=== PATIENT | male | born 1990 | race Caucasian/White ===

== ENCOUNTER 2019-05-27 08:29 | Outpatient (CLI) | payer OTHER, SELFPAY ==
--- NOTE | ~2019-05-27 | XR_ITS ---
EXAMINATION: XR shoulder LT min 2V DATE: 05/27/2019 09:25 INDICATION: Left biceps pain. TECHNIQUE: 4 views of left shoulder were obtained. COMPARISON: Chest 2 views 01/07/2019 FINDINGS: Bone alignment is normal. No fracture. Joint spaces are well maintained. IMPRESSION: 1. Normal left shoulder. Reviewed, dictated and finalized at location A. F DEVELOPMENT MANAGER IMPRESSION: 1. Normal left shoulder.
--- NOTE | ~2019-05-27 | US_ITS ---
EXAMINATION: US art doppler w press UE BI DATE: 05/27/2019 09:22 INDICATION: Left upper limb pain TECHNIQUE: Segmental pressures and plethysmographic and Doppler waveforms of the upper extremity terrie oral were obtained. COMPARISON: None. FINDINGS: Right and left brachial artery pressures of 118 mm Hg and 114 mm Hg, respectively, are concordant (no rmal difference <= 30 mmHg). The right finger:brachial systolic pressure ratio is 1.34 (normal > 0.8) . Segmental pressure gradients are normal. Arterial waveforms are triphasic at the right subclavian a nd brachial arteries and biphasic at the remaining arteries with brisk systolic upstrokes throughout (normal upstroke < 0.2 s). The left finger:brachial systolic pressure ratio is 1.38. Segmental pressure gradients are normal. Ar terial waveforms are triphasic at the left subclavian, axillary and brachial arteries and biphasic at the left brachial and ulnar arteries with brisk systolic upstrokes throughout. IMPRESSION: No significant arterial occlusive disease to either upper limb with normal bilateral finger brachial indices. Reviewed, dictated and finalized at location A. EMEAT MAKER IMPRESSION: No significant arterial occlusive disease to either upper limb with normal bila teral finger brachial indices.
--- NOTE | ~2019-05-27 | XR_ITS ---
EXAMINATION: XR humerus LT DATE: 05/27/2019 09:25 INDICATION: Left biceps pain. TECHNIQUE: 2 views of left humerus were obtained. COMPARISON: None. FINDINGS: Bone alignment is normal. No fracture. Joint spaces are well maintained. IMPRESSION: 1. Normal left humerus. Reviewed, dictated and finalized at location A. FACTURING WORKER IMPRESSION: 1. Normal left humerus.
== END 2019-05-27 08:30 | disposition home or self-care (01) ==
PROVIDERS: PCP Emergency Medicine; Visit Provider Emergency Medicine
DX: M79.18 Myalgia, other site (principal)
CPT/HCPCS: 73030; 73060; 93923

== ENCOUNTER 2020-01-12 20:37 | Emergency (ER) | payer SELFPAY ==
[2020-01-12 20:41] VITALS: BP 162/95; PULSE 98; RESP 17; TEMP 36.6; O2SAT 100
[2020-01-12 23:13] VITALS: BP 163/94; PULSE 85; RESP 20; O2SAT 96
--- NOTE | 2020-01-12 23:14 | ED.ANXIETY ---
HPI - Anxiety General Chief Complaint: Anxiety Stated Complaint: blood pressure through the roof, anxious Time Seen by Provider: 01/12/20 23:08 Source: RN notes reviewed History of Present Illness HPI narrative: Patient presents emergency department from home for hypertension. Patient states he was sitting at home when he began to feel anxious. States he felt his blood pressure spiked at that time as well and states he had tingling in his bilateral hands with some mild nausea. He states he is feeling better at this time. States he had a previous history of hypertension and had been on antihypertensive medication but was taken off of it 2 years ago when he stopped smoking. He denies any fevers or chills chest pain shortness of breath abdominal pain headache vision changes or any other symptoms at this time. Patient states he does have history of anxiety and had been on Xanax but is currently out of his prescription f Related Data Allergies Allergy/AdvReac Type Severity Reaction Status Date / Time No Known Allergies Allergy Unverified 01/07/19 21:54 Review of Systems Review of Systems: Narrative: Gen.: Denies fevers or chills Eyes: Denies eye pain or visual change ENT: Denies congestion Respiratory: Denies shortness of breath or cough CV: Denies chest pain or palpitations GI: Denies abdominal pain nausea, emesis or diarrhea denies burning, urgency, frequency or hematuria Musculoskeletal: Denies back pain or muscle pain Neuro: Denies numbness, tingling, weakness or focal weakness Skin: Denies rash Psych: Reports anxiety Except as documented, all other systems reviewed and negative PMFSH Past Medical History Medical History (Updated 01/13/20 @ 01:39 by Dieter Mckeon DO) Anxiety Social History Social History (Updated 01/12/20 @ 23:16 by Dieter Mckeon DO) Smoking status: Former smoker Exam Narrative: Exam Narrative: APPEARANCE: No acute distress, nontoxic, resting in bed EYES: EOMI, Maribel HEENT: Normocephalic, atraumatic, OMM RESPIRATORY: No respiratory distress Clear to auscultation bilaterally with no rhonchi wheezing or rales. CARDIOVASCULAR: Regular rate and rhythm without murmurs rubs or gallops. ABDOMINAL: Soft, nontender, nondistended, no rebound or guarding MUSCULOSKELETAl: Moves all extremities. No clubbing, cyanosis or edema. NEURO: Awake and alert x 3. Following commands, speech normal, no focal deficits SKIN:: Warm, dry. No rashes lesions or abrasions PSYCHIATRIC: Normal affect/mood, Course Course Emergency Course: Patient given states he has some feelings of anxiety Ativan was given with resolution of symptoms. Discussed with patient results of workup and diagnosis. Discussed need for follow-up with primary care, proper use of medication, and reasons to return to the emergency department. Patient understands and agrees to current treatment plan. Discussed with patient need follow-up with PCP Dr. Pedraza as he has been taken off his hypertensive medication in the past and may require them again Vital Signs Vital signs: Vital Signs Temperature 97.9 F 01/12/20 20:41 Pulse Rate 98 01/12/20 20:41 Respiratory Rate 17 01/12/20 20:41 Blood Pressure 162/95 H 01/12/20 20:41 Pulse Oximetry 100 01/12/20 20:41 Temperature 97.9 F 01/12/20 20:41 Pulse Rate 104 H 01/12/20 23:57 Respiratory Rate 18 01/12/20 23:57 Blood Pressure 160/94 H 01/12/20 23:57 Pulse Oximetry 98 01/12/20 23:57 MDM - Anxiety Lab Data Result diagrams: 01/12/20 23:40 01/12/20 23:40 Labs: Lab Results 01/12/20 01/12/20 01/13/20 Range/Units 23:40 23:40 00:08 WBC 9.6 (4.5-10.0) K/mm3 RBC 5.25 (4.6-6.20) M/mm3 Hgb 15.4 (14.0-18.0) g/dL Hct 45.1 (42.0-52.0) % MCV 85.9 (80-100) fl MCH 29.3 (26-34) pg MCHC 34.1 (32-36) g/dl RDW 11.6 (11.5-14.5) % Plt Count 232 (150-375) k/mm3 MPV 10.8 H (7.4-10.4) fl Immature Gr
[2020-01-12 23:45] LABS: Basophils Absolute Auto 0.1 K/mm3 (0.0-0.1); Basophils Percent Auto 0.6 % (0.2-1.2); Eosinophils Absolute Auto 0.4 K/mm3 (0-0.3); Eosinophils Percent Auto 4.1 % (0-4.4); Hematocrit 45.1 % (42.0-52.0); Hemoglobin 15.4 g/dL (14.0-18.0); Immature Granulocyte Absolute 0.03 K/mm3 (0.00-0.031); Immature Granulocyte Percent A 0.3 % (0-0.5); Lymphocytes Absolute Auto 2.31 K/mm3 (0.9-3.2); Lymphocytes Percent Auto 24.1 % (18.3-44.2); Mean Corpuscular HGB Conc 34.1 g/dl (32-36); Mean Corpuscular Hemoglobin 29.3 pg (26-34); Mean Corpuscular Volume 85.9 fl (80-100); Mean Platelet Volume 10.8 fl (7.4-10.4); Monocytes Absolute Auto 0.7 K/mm3 (0.1-0.6); Monocytes Percent Auto 7.3 % (2.6-8.5); Neutrophils Absolute Auto 6.1 K/mm3 (1.3-6.7); Neutrophils Percent Auto 63.6 % (45.5-73.1); Platelet Count Result 232 k/mm3 (150-375); Red Blood Count 5.25 M/mm3 (4.6-6.20); Red Cell Distribution Width 11.6 % (11.5-14.5); White Blood Count 9.6 K/mm3 (4.5-10.0)
[2020-01-12 23:57] VITALS: BP 160/94; PULSE 104; RESP 18; O2SAT 98
[2020-01-12 23:57] LABS: Alanine Aminotransferase 38 U/L (4-50); Albumin Level 4.3 g/dL (3.5-5.1); Alkaline Phosphatase 90 U/L (38-126); Anion Gap 8 mmol/L (8-16); Aspartate Amino Transferase 28 U/L (17-59); Bilirubin,Total 0.5 mg/dL (0.2-1.3); Blood Urea Nitrogen 11 mg/dL (9-20); Calcium 9.6 mg/dL (8.4-10.2); Carbon Dioxide 29 mmol/L (22-30); Chloride 100 mmol/L (98-107); Estimated Glomerular Filt Rate > 60; Glucose 99 mg/dL (75-110); Potassium 4.3 mmol/L (3.4-5.0); Sodium 137 mmol/L (137-145)
[2020-01-13 00:22] LABS: Add Urine Microscopic? NO; Appearance Urine Clear (Clear); Bilirubin Urine Negative (Negative); Blood Urine Negative (Negative); Color Urine Straw (Yellow); Glucose Urine UA Negative (Negative); Ketones Urine Negative (Negative); Leukocyte Esterase Ur Negative LEU/UL (Negative); Nitrate Urine Negative (Negative); Protein Urine Negative (Negative); Specific Grav Ur 1.012 (1.001-1.035); Urobilinogen Urine Negative mg/dL (<2.0)
[2020-01-13] MEDS: LORazepam (*CRX) 0.5 MG TABLET PO (00:37)
[2020-01-13 02:39] VITALS: BP 139/94; PULSE 85; RESP 20; O2SAT 98
== END 2020-01-13 03:22 | disposition home or self-care (01) ==
PROVIDERS: Emergency Provider Emergency Medicine; Referring Provider Family Medicine
DX: F41.9 Anxiety disorder, unspecified (principal); I10 Essential (primary) hypertension; Z87.891 Personal history of nicotine dependence
CPT/HCPCS: 36415; 80053; 81003; 85025; 99283; A9270

== ENCOUNTER 2020-01-19 21:00 | Emergency (ER) | payer SELFPAY ==
[2020-01-19 21:13] VITALS: BP 156/68; PULSE 81; RESP 98; TEMP 36.8; O2SAT 100
--- NOTE | 2020-01-19 22:29 | ED.WOUNDLAC ---
HPI - Wound/Laceration General Chief Complaint: Wound/Laceration Stated Complaint: left finger laceration Time Seen by Provider: 01/19/20 22:00 History of Present Illness HPI narrative: Patient is a 29-year-old male who presents ER with a thumb laceration. Left thumb. He was trying to make salad and cut his fingertip with a knife. No numbness or tingling. He is cleanse the wound. No functional deficit. Unknown last tetanus. Related Data Allergies Allergy/AdvReac Type Severity Reaction Status Date / Time No Known Allergies Allergy Verified 01/19/20 21:39 Review of Systems Constitutional: Constitutional: Denies fever(s) and Denies weakness Musculoskeletal: Musculoskeletal: Denies arthralgias and Denies joint swelling Integumentary/Breasts: Comments: Laceration to thumb left Neurologic: Denies focal weakness and Denies numbness PMFSH Past Medical History Medical History (Updated 01/19/20 @ 23:40 by Manuel Valencia MD) Anxiety Surgical History Surgical History (Updated 01/19/20 @ 22:30 by Manuel Valencia MD) No history of previous surgery Social History Social History (Updated 01/12/20 @ 23:16 by Dieter Mckeon DO) Smoking status: Former smoker Exam Narrative: Exam Narrative: GENERAL: Well-appearing, well-nourished, and in no acute distress. HEAD: Normocephalic, atraumatic. EXTREMITIES: Focused exam left hand reveals laceration over the palmar aspect of the thumb is about 2 cm extending into the ulnar aspect of the thumbnail. Sharp sensation intact. Capillary refill noted. SKIN: Warm, dry, laceration as noted above. NEURO: No focal deficits. Alert and oriented x3. PSYCH: Normal mood and affect. Course Vital Signs Vital signs: Vital Signs Temperature 98.2 F 01/19/20 21:13 Pulse Rate 81 01/19/20 21:13 Respiratory Rate 98 H 01/19/20 21:13 Blood Pressure 156/68 H 01/19/20 21:13 Pulse Oximetry 100 01/19/20 21:13 Temperature 98.2 F 01/19/20 21:13 Pulse Rate 81 01/19/20 21:13 Respiratory Rate 98 H 01/19/20 21:13 Blood Pressure 156/68 H 01/19/20 21:13 Pulse Oximetry 100 10/05/20 21:13 Procedures Laceration Laceration 1: Date: 01/19/20 Time: 23:38 Site: other (thumb) Side (If applicable): left Size (cm): 2 Description: linear and flap Depth: simple, single layer Local Anesthetic: lidocaine 1% and with epi Amount of anesthesia used (mL): 2 Pre-repair: irrigated ====== Skin Level ====== Skin layer closed with: nylon Size (cm): 4-0 Number of sutures: 2 Technique: simple, interrupted ====== Subcutaneous Layer ====== ====== Muscle Layer ====== ====== Tendon Layer ====== Discharge Plan Discharge Clinical Impression: Laceration Patient Disposition: Home, Self-Care Condition: Stable Instructions: Laceration (ED) Additional Instructions: Return to the ER if your thumb is red and hot and swollen, it is draining pus from the wound, or you have additional concerns. Remove your sutures in 10 to 14 days. Prescriptions: No Action alprazolam [Xanax] 0.25 mg tablet 0.25 mg PO TID PRN (Reason: anxiety) Qty: 4 RF: 0 Follow-up/Referrals: Francesco Pedraza MD [Primary Care Provider] - 1 Week
[2020-01-19] MEDS: TETANUS,DIPHTHERIA,AC PERTUSSIS ADULT (0.5 ML) BOOSTRIX IM (22:33)
[2020-01-19 23:45] VITALS: BP 141/82; PULSE 88; RESP 19; O2SAT 99
== END 2020-01-19 23:45 | disposition home or self-care (01) ==
PROVIDERS: Emergency Provider Emergency Medicine; PCP Emergency Medicine
DX: S61.012A Laceration without foreign body of left thumb without damage to nail, initial encounter (principal); W26.0XXA Contact with knife, initial encounter; Y93.G1 Activity, food preparation and clean up; Z23 Encounter for immunization
CPT/HCPCS: 12001; 90471; 90715; 99282

== ENCOUNTER 2020-01-28 22:48 | Emergency (ER) | payer OTHER, MEDICAID, SELFPAY ==
--- NOTE | ~2020-01-28 | XR_ITS ---
EXAMINATION: XR ankle LT min 3V EXAM DATE: 01/28/2020 23:37 INDICATION: Initial encounter following injury, with pain of the left ankle. TECHNIQUE: Left ankle frontal, lateral and oblique projections obtained and reviewed. There is no pr ior study for comparison. FINDINGS: The left ankle mortise appears intact. There is acute closed posttraumatic fracture thro ugh the posterior malleolus identified on the lateral projection. No displacement. This finding has b een indicated, marked on the examination for review, clinical correlation. There is an ankle joint hemarthrosis. There is soft tissue swelling over the lateral malleolus. No other fractures are identi fied. IMPRESSION: Acute nondisplaced left posterior malleolar fracture. Reviewed, dictated and finalized at location G.
[2020-01-28 22:53] VITALS: BP 161/90; PULSE 97; RESP 16; TEMP 36.6; O2SAT 98
--- NOTE | 2020-01-28 23:02 | ED.LOWEXIN ---
HPI - Extremity Injury (Lower) General Chief Complaint: Extremity Injury, Lower Stated Complaint: ankle pain/fall Time Seen by Provider: 01/28/20 22:57 History of Present Illness HPI Narrative: Slipped and fell down a few steps. Twisted his left ankle when he landed. Noted several pops. Pain and swelling in the ankle and extending 1[address] up the lower leg. Related Data Home Medications Medication Instructions Recorded Confirmed lisinopril 5 mg PO DAILY 01/28/20 omeprazole 40 mg PO DAILY 01/28/20 Allergies Allergy/AdvReac Type Severity Reaction Status Date / Time No Known Allergies Allergy Verified 01/28/20 23:11 Review of Systems Review of Systems: All systems reviewed & are unremarkable except as noted in HPI and below PMFSH Past Medical History Medical History Anxiety Surgical History Surgical History No history of previous surgery Social History Social History Smoking status: Former smoker Gender identity (if verbalized by the patient): Male Exam Const: General: no acute distress and alert Orientation/consciousness: patient oriented x3 HENMT: Head: normal to inspection Cardio: Other: 2+ left DP Skin: General skin exam: normal color Wounds: no wounds Neuro: General: patient oriented x3 and moves all extremities Speech: normal speech Extrem: Other: Swelling and tenderness over left lateral malleolus. Plantar flexion of toes with calf squeeze. Course Vital Signs Vital signs: Vital Signs Temperature 36.6 C 01/28/20 22:53 Pulse Rate 97 01/28/20 22:53 Respiratory Rate 16 01/28/20 22:53 Blood Pressure 161/90 H 01/28/20 22:53 Pulse Oximetry 98 01/28/20 22:53 Temperature 36.6 C 01/28/20 22:53 Pulse Rate 97 01/28/20 22:53 Respiratory Rate 16 01/28/20 22:53 Blood Pressure 161/90 H 01/28/20 22:53 Pulse Oximetry 98 01/28/20 22:53 Procedures Orthopedic Splinting/Casting Injury #1: Side: left Splint: customized in ED OCL: posterior Pre-Procedure Neuro Vascular Exam: normal Post-Procedure Neuro Vascular Exam: normal Other Orthopedic Equipment: crutches MDM - Extremity Injury (Lower) Differential Diagnosis Differential diagnosis: Likely ankle sprain and strain and ankle fracture Imaging Data Radiologist's impression: ITS Impressions Ankle X-Ray 01/28/20 23:39 IMPRESSION: Acute nondisplaced left posterior malleolar fracture. Discharge Plan Discharge Clinical Impression: Ankle fracture, left Patient Disposition: Home, Self-Care Condition: Stable Instructions: Ankle Fracture (ED) Prescriptions: No Action alprazolam [Xanax] 0.25 mg tablet 0.25 mg PO TID PRN (Reason: anxiety) Qty: 4 RF: 0 omeprazole 40 mg Capsule,Delayed Release(Dr/Ec) 40 mg PO DAILY RF: 0 lisinopril 5 mg tablet 5 mg PO DAILY RF: 0 Follow-up/Referrals: Francesco Pedraza MD [Primary Care Provider] - Beau King MD [Physician] - 1 Week
== END 2020-01-29 00:20 | disposition home or self-care (01) ==
PROVIDERS: Emergency Provider Emergency Medicine; PCP Emergency Medicine
DX: S82.892A Other fracture of left lower leg, initial encounter for closed fracture (principal); W10.9XXA Fall (on) (from) unspecified stairs and steps, initial encounter
CPT/HCPCS: 29515; 73610; 99284

== ENCOUNTER → 2020-02-26 12:25 | Outpatient (CLI) | payer MEDICAID, SELFPAY ==
--- NOTE | ~2020-02-26 | XR_ITS ---
EXAMINATION: XR abdomen/kub 1V EXAM DATE: 02/26/2020 12:49 INDICATION: Left flank pain . TECHNIQUE: Frontal projection(s) of the abdomen for interpretation. There is no prior study for tash woods. FINDINGS: There are 2 pill-like densities within colon. Calcifications in the pelvis are believed to be phleboliths. Expected amount of colonic stool. No small bowel dilation. Bones are unremarkable. IMPRESSION: Unremarkable XR abdomen/kub 1V exam. Reviewed, dictated and finalized at location A. RE CUTTER
== END ==
PROVIDERS: PCP Emergency Medicine; Visit Provider Emergency Medicine
DX: R10.9 Unspecified abdominal pain (principal)
CPT/HCPCS: 74018

== ENCOUNTER 2020-04-13 17:22 | Emergency (ER) | payer OTHER, MEDICAID, SELFPAY ==
[2020-04-13 17:25] VITALS: BP 147/75; PULSE 85; RESP 16; TEMP 36.8; O2SAT 99
--- NOTE | 2020-04-13 18:10 | ED.GENADULT ---
HPI - General Adult General Chief complaint: Dizziness Stated complaint: Dizziness Time Seen by Provider: 04/13/20 18:04 Source: patient and RN notes reviewed Mode of arrival: ambulatory Limitations: no limitations History of Present Illness HPI narrative: 29-year-old male presents with complaints of dizziness and lightheadedness that has been going on for the past 2 days. Wilbur reports symptoms increased today with LT ear muffled, dizziness, and nausea. No treatment. Wilbur reports upper respiratory infection symptoms a week ago with residual of sinus pressure and post nasal drip. Exacerbating factors consist of changing position too fast turning head from side to side too fast. Relieving factors is sitting still. Denies ear pain, ear itching, ear trauma, trauma to head, syncopal episodes, altered vision, altered speech, confusion, or seizure activity. Denies headache, numbness or tingling in extremities. Denies chest pain or dyspnea. Denies fever or chills. Tolerating p.o. intake well. Remains active. The patient reports he have not been diagnosed with COVID-19. The patient reports he is not waiting for the results of a COVID-19 lab test. The patient reports he do not have chills, weakness, or fatigue. The patient reports he do not have a new or worsening cough or shortness of breath. Denies chest pain. The patient reports he do not have any loss of taste, sore throat, vomiting, abdominal pain, and diarrhea. Denies recent traveling. Denies concerns for COVID-19 or exposures been home with limited outdoor exposure except for essential household needs, work, and return home. At this time, patient is not suspected of having COVID-19. Some parts of this dictation were generated by voice recognition software and may contain typographical and/or grammatical inaccuracies. Related Data Home Medications Medication Instructions Recorded Confirmed lisinopril [Zestril] 5 mg PO DAILY 04/13/20 04/13/20 omeprazole [Prilosec] 40 mg PO DAILY 04/13/20 04/13/20 Allergies Allergy/AdvReac Type Severity Reaction Status Date / Time No Known Allergies Allergy Verified 04/13/20 17:40 Review of Systems Review of Systems: Narrative: CONSTITUTIONAL: Denies fever, chills, sweats. EYES: visual changes, redness, discharge. ENT: Complains of rhinorrhea, congestion, muffled LT ear. Denies sore throat, otalgia. CARDIOVASCULAR: Denies chest pain, palpitations, edema. RESPIRATORY: Denies dyspnea, wheezing, cough. GASTROINTESTINAL: Denies abdominal pain, vomiting, diarrhea. Complains of nausea. SKIN: Denies lesions, itching, drainage. MUSCULOSKELETAL: Denies acute back pain, joint pain, or myalgia. NEUROLOGIC: Denies numbness or focal weakness. Complains of dizziness, lightheadedness. PSYCHIATRIC: Denies anxiety or depression. All systems reviewed & are unremarkable except as noted in HPI and below. [facility] Past Medical History Medical History (Updated 04/14/20 @ 00:00 by [facility]) Anxiety History of gastroesophageal reflux (GERD) Hypertension Obesity Surgical History Surgical History No history of previous surgery Family History Family History (Updated 04/13/20 @ 18:19 by JEAN Eaton) Father Hypertension Diabetes mellitus Mother Hypertension Social History Social History (Updated 04/13/20 @ 18:22 by JEAN Eaton) Smoking status: Former smoker Tobacco type: cigarettes Second hand tobacco smoke exposure: Yes Smoking end date: 06/15/15 Alcohol intake: current Substance use: never Additional living arrangements comments: significant other Gender identity (if verbalized by the patient): Male Comments At time of signature, agree with nurse past medical, surgical, social, and family history. There is no relevant family history pertinent to the presenting complaint. Exam Narrative: Exam Narrative: GENERAL: This i
[2020-04-13] MEDS: MECLIZINE HCL 25 MG TABLET PO (18:16)
[2020-04-13] MEDS: ONDANSETRON HCL ODT 4 MG TABLET PO (18:16)
--- NOTE | 2020-04-13 18:18 | ECG_ITS ---
Measurements Intervals Gregory Rate: 75 P: 55 MS: 182 QRS: 44 QRSD: 94 T: 38 QT: 322 QTc: 360 Interpretive Statements SINUS RHYTHM WITH SINUS ARRHYTHMIA MINIMAL Q WAVES- INFERIOR LEADS BASELINE WANDER- V4-V6 BORDERLINE ECG Electronically Signed On 04-14-2020 13:56:37 BREAKFAST BAR ATTENDANT by Crispin Girard D.O.
[2020-04-13 18:20] VITALS: BP 119/73; PULSE 80
[2020-04-13 18:22] VITALS: BP 121/71; PULSE 82
[2020-04-13 18:24] VITALS: BP 110/67; PULSE 96
== END 2020-04-13 18:35 | disposition home or self-care (01) ==
PROVIDERS: Emergency Provider Nurse Practitioner Family; PCP Emergency Medicine
DX: H81.10 Benign paroxysmal vertigo, unspecified ear (principal); Z87.891 Personal history of nicotine dependence; K21.9 Gastro-esophageal reflux disease without esophagitis; I10 Essential (primary) hypertension; E66.9 Obesity, unspecified; Z68.34 Body mass index [BMI] 34.0-34.9, adult
CPT/HCPCS: 93005; 99213; A9270; G0463

== ENCOUNTER 2020-04-14 12:21 | Outpatient (NON) | payer MEDICAID, SELFPAY ==
[2020-04-14 22:08] LABS: SARS-CoV-2 RNA PCR Negative
== END 2020-04-14 12:22 ==
PROVIDERS: PCP Emergency Medicine; Visit Provider Emergency Medicine
DX: Z20.828 Contact with and (suspected) exposure to other viral communicable diseases (principal); R53.83 Other fatigue; M54.2 Cervicalgia
CPT/HCPCS: 87635; C9803; U0003

== ENCOUNTER 2020-05-11 18:38 | Emergency (ER) | payer MEDICAID, SELFPAY ==
[2020-05-11 18:54] VITALS: BP 166/82; PULSE 87; RESP 16; TEMP 36.6; O2SAT 98
[2020-05-11 19:07] LABS: Basophils Percent Auto 0.7 % (0.2-1.2); Eosinophils Absolute Auto 0.2 K/mm3 (0-0.3); Eosinophils Percent Auto 3.9 % (0-4.4); Hematocrit 45.7 % (42.0-52.0); Hemoglobin 15.6 g/dL (14.0-18.0); Immature Granulocyte Absolute 0.02 K/mm3 (0.00-0.031); Immature Granulocyte Percent A 0.3 % (0-0.5); Lymphocytes Absolute Auto 1.53 K/mm3 (0.9-3.2); Lymphocytes Percent Auto 25.7 % (18.3-44.2); Mean Corpuscular HGB Conc 34.1 g/dl (32-36); Mean Corpuscular Hemoglobin 29.3 pg (26-34); Mean Corpuscular Volume 85.7 fl (80-100); Monocytes Absolute Auto 0.5 K/mm3 (0.1-0.6); Monocytes Percent Auto 9.1 % (2.6-8.5); Neutrophils Absolute Auto 3.6 K/mm3 (1.3-6.7); Neutrophils Percent Auto 60.3 % (45.5-73.1); Platelet Count Result 249 k/mm3 (150-375); Red Blood Count 5.33 M/mm3 (4.6-6.20); Red Cell Distribution Width 11.8 % (11.5-14.5)
[2020-05-11 19:20] LABS: Alanine Aminotransferase 40 U/L (4-50); Albumin Level 4.4 g/dL (3.5-5.1); Alkaline Phosphatase 88 U/L (38-126); Anion Gap 9 mmol/L (8-16); Aspartate Amino Transferase 27 U/L (17-59); Bilirubin,Total 0.4 mg/dL (0.2-1.3); Blood Urea Nitrogen 8 mg/dL (9-20); Calcium 9.1 mg/dL (8.4-10.2); Carbon Dioxide 28 mmol/L (22-30); Chloride 100 mmol/L (98-107); Estimated CRCL calculation 181 ml/min; Estimated Glomerular Filt Rate > 60; Glucose 101 mg/dL (75-110); Lipase 47 U/L (23-300); Potassium 4.1 mmol/L (3.4-5.0); Sodium 137 mmol/L (137-145)
[2020-05-11 19:47] VITALS: BP 146/81; BP 161/87; PULSE 80; PULSE 85
[2020-05-11 19:49] VITALS: BP 161/95; PULSE 94
--- NOTE | 2020-05-11 19:54 | ED.NAVMDI ---
HPI - Nausea/Vomiting/Diarrhea General Chief complaint: Nausea/Vomiting/Diarrhea Stated complaint: vomiting after drinking last night Time Seen by Provider: 05/11/20 19:47 Source: patient Mode of arrival: ambulatory Limitations: no limitations History of Present Illness HPI Narrative: 29-year-old male Reports drinking too many to count rum and Cokes yesterday Today he feels bad He has had a headache and upset stomach vomited a couple times earlier today and has had no appetite He has been able to start taking sips of liquids this evening He was worried he might be dehydrated because he had only voided twice today Related Data Home Medications Medication Instructions Recorded Confirmed lisinopril [Zestril] 5 mg PO DAILY 04/13/20 04/13/20 omeprazole [Prilosec] 40 mg PO DAILY 04/13/20 04/13/20 Allergies Allergy/AdvReac Type Severity Reaction Status Date / Time No Known Allergies Allergy Verified 04/13/20 17:40 Review of Systems Constitutional: Constitutional: Reports fatigue and Reports weakness Gastrointestinal: Gastrointestinal: Reports nausea and Reports vomiting Neurologic: Comments: Headache PMFSH Past Medical History Medical History (Updated 05/11/20 @ 19:55 by Adam Gamino MD) Anxiety History of gastroesophageal reflux (GERD) Hypertension Obesity Surgical History Surgical History No history of previous surgery Family History Family History (Updated 04/13/20 @ 18:19 by JEAN Eaton) Father Hypertension Diabetes mellitus Mother Hypertension Social History Social History (Updated 04/13/20 @ 18:22 by JEAN Eaton) Smoking status: Former smoker Tobacco type: cigarettes Second hand tobacco smoke exposure: Yes Smoking end date: 06/15/15 Alcohol intake: current Substance use: never Additional living arrangements comments: significant other Gender identity (if verbalized by the patient): Male Exam Const: General: no acute distress, well developed, alert and awake Nutritional Appearance: well nourished Orientation/consciousness: patient oriented x3 (alert) Limitations: no limitations HENMT: Head: normal to inspection, normocephalic and atraumatic Ears: external ears normal General nose exam: No nasal discharge present and no epistaxis Face and sinus: face symmetric Eyes: Conjunctivae: conjunctivae normal Sclera: sclerae normal EOM: EOMs intact bilaterally Neck: Neck: normal visual inspection, supple and no JVD Other: Supple Chest: Chest palpation & inspection: deferred Resp: Effort & Inspection: normal respiratory effort Auscultation: clear to auscultation bilaterally, no rales, no rhonchi, no wheezes and other (BS =) Cardio: Rate: regular rate Rhythm: regular rhythm Heart sounds: no gallops and no murmurs GI: Inspection: normal to inspection GI Palp: Yes Soft to palpation, No Tenderness to palpation present (GI) and No Guarding due to palpation present (GI) Back/Spine/Pelvis: Thoracic/Lumbar Spine: thoracic and lumbar spine normal to inspection Skin: General skin exam: normal color and no rashes or lesions noted Neuro: General: patient oriented x3 (alert), moves all extremities and no focal motor deficits Cranial nerves: Yes facial symmetry Speech: normal speech Other: Negative Romberg Extrem: General: full ROM Psych: Affect: normal affect Course Course Emergency Course: Orthostatics negative Vital Signs Vital signs: Vital Signs Temperature 36.6 C 05/11/20 18:54 Pulse Rate 87 05/11/20 18:54 Respiratory Rate 16 05/11/20 18:54 Blood Pressure 166/82 H 05/11/20 18:54 Pulse Oximetry 98 05/11/20 18:54 Temperature 36.6 C 05/11/20 18:54 Pulse Rate 94 05/11/20 19:49 Respiratory Rate 16 05/11/20 18:54 Blood Pressure 161/95 H 05/11/20 19:49 Pulse Oximetry 98 05/11/20 18:54 MDM - Nausea/Vomiting/Diarrhea Lab Data
[2020-05-11] MEDS: ONDANSETRON HCL ODT 4 MG TABLET PO (20:05)
== END 2020-05-11 20:11 | disposition home or self-care (01) ==
PROVIDERS: Emergency Medicine; Emergency Provider Emergency Medicine; PCP Emergency Medicine
DX: F10.129 Alcohol abuse with intoxication, unspecified (principal); K21.9 Gastro-esophageal reflux disease without esophagitis; I10 Essential (primary) hypertension; E66.9 Obesity, unspecified; Z68.37 Body mass index [BMI] 37.0-37.9, adult; Z87.891 Personal history of nicotine dependence
CPT/HCPCS: 36415; 80053; 83690; 85025; 99283; A9270

== ENCOUNTER 2020-05-25 15:34 | Outpatient (CLI) | payer MEDICAID, SELFPAY ==
--- NOTE | ~2020-05-25 | MR_ITS ---
EXAMINATION: MR brain/brain stem wo/w con DATE: 05/25/2020 16:38 INDICATION: Pineal gland cyst. TECHNIQUE: Magnetic resonance imaging (MRI) of the brain and brainstem was performed without and with 20 mL MultiHance intravenous contrast. Sequences included sagittal and axial T1-weighted FSE, axial diffusion-weighted FS EPI, axial T2*-weighted GRE, axial T2-weighted FLAIR Propeller, and axial T2-we ighted Propeller. Postcontrast sequences included axial, sagittal, and coronal T1-weighted FSE. Appar ent diffusion coefficient (ADC) maps were created. COMPARISON: Brain MRI 01/28/2016 FINDINGS: There is no intracranial hemorrhage or acute ischemic infarct. There is a 1.8 x 1.5 x 1.6 c m pineal cyst. The orbits are normal. There is complete opacification of right maxillary sinus, which is slightly smaller than the left. There is mild mucosal thickening in the ethmoid sinuses. The mast oid air cells are normal. IMPRESSION: 1. 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 2. 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 This finding is at risk of progression to silent sinus syndrome. Reviewed, dictated and finalized at location A. T PACKER IMPRESSION: 1. 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 2. Chronic complete opacification of right maxillary sinus, which is slightly s maller than the left. This finding is at risk of progression to silent sinus sy ndrome.
[2020-05-25 16:08] LABS: Estimated Glomerular Filt Rate > 60
== END 2020-05-25 15:35 | disposition home or self-care (01) ==
PROVIDERS: PCP Emergency Medicine; Visit Provider Internal Medicine Hematology & Oncology
DX: E34.8 Other specified endocrine disorders (principal); J34.9 Unspecified disorder of nose and nasal sinuses
CPT/HCPCS: 70553; A9577

== ENCOUNTER 2020-11-15 09:29 | Emergency (ER) | payer BC, SELFPAY ==
--- NOTE | ~2020-11-15 | XR_ITS ---
EXAMINATION: XR chest 2V DATE: 11/15/2020 10:18 INDICATION: Chest tightness and left shoulder pain TECHNIQUE: PA and lateral views of the chest are obtained. COMPARISON: 01/07/2019 FINDINGS: The lungs are free of acute opacities. There is no pleural effusion or pneumothorax. The ca rdiomediastinal silhouette is normal. The visualized bones and soft tissues are unremarkable. IMPRESSION: 1. No acute cardiopulmonary abnormality. Reviewed, dictated and finalized at location A.
[2020-11-15 09:34] VITALS: BP 155/99; PULSE 105; RESP 12; TEMP 36.6; O2SAT 99
[2020-11-15 09:39] VITALS: PULSE 94
--- NOTE | 2020-11-15 09:39 | ED.GENADULT ---
HPI - General Adult General Chief complaint: Unspecified Stated complaint: r/o stroke or heart attack, sent by PCP Time Seen by Provider: 11/15/20 09:37 History of Present Illness HPI narrative: Patient is a 30 year old male sent by PCP for further evaluation. Patient reports left sided neck pain and shoulder pain with tightness . He reports initially had tingling to left hand which has since resolved. Patient reports a history of HTN and was taking 5mg of Lisinopril daily but patient has not had in approximately 1 month. Patient reports seeing PCP today for medication refill and was sent for further evaluation. Patient denies shortness of breath, dizziness, numbness, tingling or chest pain at this time. He denies significant medical history. He denies exposure to Covid and is not vaccinated for Covid. MD complaint: Shoulder discomfort Related Data Home Medications Medication Instructions Recorded Confirmed lisinopril [Zestril] 5 mg PO DAILY 04/13/20 04/13/20 omeprazole [Prilosec] 40 mg PO DAILY 04/13/20 04/13/20 Allergies Allergy/AdvReac Type Severity Reaction Status Date / Time No Known Allergies Allergy Verified 11/15/20 09:38 Review of Systems Review of Systems: CONSTITUTIONAL: Denies fever, chills, or sweats. EYES: Denies visual changes, redness, or discharge. ENT: Denies rhinorrhea, congestion, sore throat, or otalgia. CARDIOVASCULAR: Denies chest pain, palpitations, or edema. RESPIRATORY: Denies cough or dyspnea. GASTROINTESTINAL: Denies abdominal pain, nausea, vomiting, or diarrhea. GENITOURINARY: Denies dysuria or hematuria. SKIN: Denies rash or itching. MUSCULOSKELETAL: Reports left shoulder discomfort and tingling in left hand which has since resolved NEUROLOGIC: Denies headache, numbness, dizziness, or weakness. PSYCHIATRIC: Denies anxiety or depression. [facility] Past Medical History Medical History Anxiety History of gastroesophageal reflux (GERD) Hypertension Obesity Surgical History Surgical History No history of previous surgery Family History Family History Father Hypertension Diabetes mellitus Mother Hypertension Social History Social History Smoking status: Former smoker Tobacco type: cigarettes Second hand tobacco smoke exposure: Yes Smoking end date: 06/15/15 Alcohol intake: current Substance use: never Additional living arrangements comments: significant other Gender identity (if verbalized by the patient): Male Comments At the time of signature, I have reviewed and agree with nursing past medical, surgical, social, and family history unless otherwise noted. Please see nursing chart for further information. There is no relevant family history pertinent to the presenting complaint. Exam Narrative: GENERAL: Well-appearing, well-nourished, and in no acute distress. HEAD: Normocephalic, atraumatic. EYES: EOMI. No redness or drainage. Conjunctiva are normal. ENT: Mucous membranes pink and moist. NECK: AROM. Supple. No lymphadenopathy. CHEST: No respiratory distress. Clear to auscultation. HEART: Regular rate and rhythm. No murmur appreciated. Normal peripheral pulses. GI: Soft, nontender without rebound, or guarding. No distention. Bowel sounds normal in all quadrants. MUSCULOSKELETAL: No bony tenderness. EXTREMITIES: Normal range of motion. No edema. SKIN: Warm, dry, no rash. NEURO: No focal deficits. Alert and oriented x3. Gait steady. PSYCH: Normal affect. No signs of depression or anxiety. Course Vital Signs Vital signs: Vital Signs Temperature 36.6 C 11/15/20 09:34 Pulse Rate 105 H 11/15/20 09:34 Respiratory Rate 12 11/15/20 09:34 Blood Pressure 155/99 H 11/15/20 09:34 Pulse Oximetry 99 11/15/20 09:34 T
--- NOTE | 2020-11-15 09:40 | ECG_ITS ---
Measurements Intervals [place] Rate: 96 P: 51 [place]: 185 QRS: 36 QRSD: 98 T: 36 QT: 315 QTc: 399 Interpretive Statements SINUS RHYTHM BASELINE ARTIFACT- II, III, AVR, AVF, V3-V6 NORMAL ECG Electronically Signed On 11-15-2020 11:07:48 CDT by Crispin Girard D.O.
[2020-11-15 10:02] LABS: Basophils Absolute Auto 0.1 K/mm3 (0.0-0.1); Eosinophils Absolute Auto 0.6 K/mm3 (0-0.3); Eosinophils Percent Auto 6.2 % (0-4.4); Hemoglobin 14.9 g/dL (14.0-18.0); Immature Granulocyte Absolute 0.03 K/mm3 (0.00-0.031); Immature Granulocyte Percent A 0.3 % (0-0.5); Lymphocytes Absolute Auto 2.85 K/mm3 (0.9-3.2); Lymphocytes Percent Auto 31.1 % (18.3-44.2); Mean Corpuscular HGB Conc 33.1 g/dl (32-36); Mean Corpuscular Hemoglobin 28.5 pg (26-34); Mean Platelet Volume 10.6 fl (7.4-10.4); Monocytes Percent Auto 10.8 % (2.6-8.5); Neutrophils Absolute Auto 4.6 K/mm3 (1.3-6.7); Neutrophils Percent Auto 50.6 % (45.5-73.1); Platelet Count Result 244 k/mm3 (150-375); Red Blood Count 5.23 M/mm3 (4.6-6.20); Red Cell Distribution Width 11.8 % (11.5-14.5); White Blood Count 9.2 K/mm3 (4.5-10.0)
[2020-11-15 10:12] LABS: Alanine Aminotransferase 38 U/L (4-50); Albumin Level 4.5 g/dL (3.5-5.1); Alkaline Phosphatase 84 U/L (38-126); Anion Gap 7 mmol/L (8-16); Aspartate Amino Transferase 30 U/L (17-59); Bilirubin,Total 0.3 mg/dL (0.2-1.3); Blood Urea Nitrogen 14 mg/dL (9-20); Calcium 9.7 mg/dL (8.4-10.2); Carbon Dioxide 28 mmol/L (22-30); Chloride 103 mmol/L (98-107); Estimated CRCL calculation 146 ml/min; Estimated Glomerular Filt Rate > 60; Glucose 86 mg/dL (65-110); Potassium 3.6 mmol/L (3.4-5.0); Sodium 138 mmol/L (137-145)
[2020-11-15 10:51] LABS: Add Urine Microscopic? NO; Appearance Urine Clear (Clear); Bilirubin Urine Negative (Negative); Blood Urine Negative (Negative); Color Urine Yellow (Yellow); Glucose Urine UA Negative (Negative); Ketones Urine Negative (Negative); Leukocyte Esterase Ur Negative LEU/UL (Negative); Nitrate Urine Negative (Negative); Protein Urine Negative (Negative); Specific Grav Ur 1.013 (1.001-1.035); Urobilinogen Urine Negative mg/dL (<2.0)
[2020-11-15 11:26] LABS: Troponin I < 0.012 ng/mL (0.000-0.034)
[2020-11-15 12:27] VITALS: BP 157/98; PULSE 97; RESP 18; O2SAT 99
== END 2020-11-15 12:27 | disposition home or self-care (01) ==
PROVIDERS: Emergency Provider Nurse Practitioner; PCP Emergency Medicine
DX: F41.9 Anxiety disorder, unspecified (principal); K21.9 Gastro-esophageal reflux disease without esophagitis; I10 Essential (primary) hypertension; E66.9 Obesity, unspecified; Z68.36 Body mass index [BMI] 36.0-36.9, adult; Z87.891 Personal history of nicotine dependence
CPT/HCPCS: 36415; 71046; 80053; 81003; 84484; 85025; 93005; 99284

== ENCOUNTER 2021-03-11 14:51 | Emergency (ER) | payer BC, SELFPAY ==
--- NOTE | ~2021-03-11 | XR_ITS ---
EXAMINATION: XR chest 2V 03/11/2021 15:48 INDICATION: Chest pain PROCEDURE: 2 view chest COMPARISON: Comparison to multiple prior studies sequentially, with oldest reviewed study dated 04/2017. FINDINGS: The lungs are clear. The cardiomediastinal silhouette is within normal limits. There are no pleural effusions. There is no pneumothorax suspected. IMPRESSION: 1: NO ACUTE CARDIOPULMONARY DISEASE. Reviewed, dictated and finalized at location A. K ANNOUNCER
[2021-03-11 14:58] VITALS: BP 159/106; PULSE 97; RESP 18; TEMP 37.3; O2SAT 98
--- NOTE | 2021-03-11 15:01 | ECG_ITS ---
Measurements Intervals [place] Rate: 97 P: 49 [place]: 171 QRS: 43 QRSD: 94 T: 30 QT: 307 QTc: 392 Interpretive Statements SINUS RHYTHM NORMAL ECG Electronically Signed On 03-12-2021 7:05:35 EDUCATIONAL AID by Crispin Girard D.O.
[2021-03-11 16:15] LABS: Basophils Absolute Auto 0.1 K/mm3 (0.0-0.1); Basophils Percent Auto 0.6 % (0.2-1.2); Eosinophils Absolute Auto 0.4 K/mm3 (0-0.3); Eosinophils Percent Auto 4.6 % (0-4.4); Hemoglobin 13.4 g/dL (14.0-18.0); Immature Granulocyte Absolute 0.03 K/mm3 (0.00-0.031); Immature Granulocyte Percent A 0.4 % (0-0.5); Lymphocytes Absolute Auto 1.57 K/mm3 (0.9-3.2); Lymphocytes Percent Auto 19.9 % (18.3-44.2); Mean Corpuscular HGB Conc 34.4 g/dl (32-36); Mean Corpuscular Hemoglobin 29.7 pg (26-34); Mean Corpuscular Volume 86.5 fl (80-100); Mean Platelet Volume 10.4 fl (7.4-10.4); Monocytes Absolute Auto 0.7 K/mm3 (0.1-0.6); Monocytes Percent Auto 9.3 % (2.6-8.5); Neutrophils Absolute Auto 5.2 K/mm3 (1.3-6.7); Neutrophils Percent Auto 65.2 % (45.5-73.1); Platelet Count Result 214 k/mm3 (150-375); Red Blood Count 4.51 M/mm3 (4.6-6.20); Red Cell Distribution Width 11.9 % (11.5-14.5); White Blood Count 7.9 K/mm3 (4.5-10.0)
[2021-03-11 16:23] LABS: Alanine Aminotransferase 34 U/L (4-50); Albumin Level 4.2 g/dL (3.5-5.1); Alkaline Phosphatase 81 U/L (38-126); Anion Gap 7 mmol/L (8-16); Aspartate Amino Transferase 24 U/L (17-59); Bilirubin,Total 0.4 mg/dL (0.2-1.3); Blood Urea Nitrogen 17 mg/dL (9-20); Calcium 9.5 mg/dL (8.4-10.2); Carbon Dioxide 26 mmol/L (22-30); Chloride 100 mmol/L (98-107); Estimated CRCL calculation 150 ml/min; Estimated Glomerular Filt Rate > 60; Glucose 104 mg/dL (65-110); Potassium 3.8 mmol/L (3.4-5.0); Sodium 133 mmol/L (137-145)
[2021-03-11 16:27] LABS: D Dimer 0.37 ug/mL (<0.48)
[2021-03-11 16:35] LABS: Troponin I < 0.012 ng/mL (0.000-0.034)
--- NOTE | 2021-03-11 17:44 | ED.BACK ---
HPI - Back Pain/Injury General Chief Complaint: Back Pain/Injury Stated Complaint: back pain Time Seen by Provider: 03/11/21 15:32 Source: RN notes reviewed History of Present Illness HPI Narrative: Patient presents emergency department from home for back pain. Patient states since scan 2 weeks ago pain is located in the left upper back does not radiate described as sharp and stabbing and worse with movement of the left arm rotation of the torso deep inspiration he states he gone to his PCP today and had x-rays taken was given Flexeril and ibuprofen he states he took the Flexeril and ibuprofen proximately an hour ago he states that the pain got worse following that and he was told by his PCP to come to the emergency department pain to become worse as he may require an MRI patient denies any fevers or chills chest pain shortness of breath abdominal pain nausea or vomiting numbness or tingling in extremities or any other symptoms Related Data Home Medications Medication Instructions Recorded Confirmed lisinopril [Zestril] 5 mg PO DAILY 04/13/20 04/13/20 omeprazole [Prilosec] 40 mg PO DAILY 04/13/20 04/13/20 Allergies Allergy/AdvReac Type Severity Reaction Status Date / Time No Known Allergies Allergy Verified 11/15/20 09:38 Review of Systems Review of Systems: Gen.: Denies fevers or chills ENT: Denies congestion Respiratory: Denies shortness of breath or cough CV: Denies chest pain or palpitations GI: Denies abdominal pain nausea, emesis or diarrhea denies burning, urgency, frequency or hematuria Musculoskeletal: See HPI Neuro: Denies numbness, tingling, weakness or focal weakness Skin: Denies rash Except as documented, all other systems reviewed and negative [facility] Past Medical History Medical History Anxiety History of gastroesophageal reflux (GERD) Hypertension Obesity Surgical History Surgical History No history of previous surgery Family History Family History Father Hypertension Diabetes mellitus Mother Hypertension Social History Social History Smoking status: Former smoker Tobacco type: cigarettes Second hand tobacco smoke exposure: Yes Smoking end date: 06/15/15 Alcohol intake: current Substance use: never Additional living arrangements comments: significant other Gender identity (if verbalized by the patient): Male Sexual Orientation (if Verbalized by the Patient): Straight or Heterosexual Exam Narrative: APPEARANCE: No acute distress, nontoxic, resting in bed EYES: EOMI HEENT: Normocephalic, atraumatic, OMM RESPIRATORY: No respiratory distress Clear to auscultation bilaterally with no rhonchi wheezing or rales. CARDIOVASCULAR: Regular rate and rhythm without murmurs rubs or gallops. ABDOMINAL: Soft, nontender, nondistended, no rebound or guarding MUSCULOSKELETAl: Moves all extremities. No clubbing, cyanosis or edema. Back: No midline thoracic lumbar tenderness palpation tender palpation over left paravertebral muscles T4-6 in region of left rhomboid pain increased with flexion abduction of the left shoulder greater than 45 degrees rotation of the torso and deep inspiration NEURO: Awake and alert. Following commands, speech normal, no focal deficits muscle strength 5 out of 5 bilateral upper and lower extremities SKIN:: Warm, dry. No rashes lesions or abrasions PSYCHIATRIC: Normal affect/mood, Course Course Emergency Course: Discussed with patient results of workup and diagnosis. Discussed need for follow-up with primary care, proper use of medication, and reasons to return to the emergency department. Patient understands and agrees to current treatment plan Vital Signs Vital signs: Vital Signs Temperature 99.2 F 03/11/21 14:58 Pulse Rate 97
[2021-03-11 18:15] VITALS: BP 121/73; PULSE 77; RESP 18; O2SAT 97
== END 2021-03-11 18:17 | disposition home or self-care (01) ==
PROVIDERS: Emergency Provider Emergency Medicine; PCP Emergency Medicine
DX: M54.6 Pain in thoracic spine (principal); I10 Essential (primary) hypertension; K21.9 Gastro-esophageal reflux disease without esophagitis; E66.9 Obesity, unspecified; Z68.39 Body mass index [BMI] 39.0-39.9, adult; Z87.891 Personal history of nicotine dependence
CPT/HCPCS: 36415; 71046; 80053; 84484; 85025; 85380; 93005; 99284

== ENCOUNTER 2021-06-10 10:23 | Outpatient (CLI) | payer MEDICAID, SELFPAY ==
--- NOTE | ~2021-06-10 | US_ITS ---
EXAMINATION: US scrotum doppler DATE: 06/10/2021 11:19 INDICATION: Elevated left testis TECHNIQUE: Testicular sonogram utilizing grayscale and Doppler COMPARISON: None. FINDINGS: The right testis measures 4.1 x 2.1 x 3.2 cm. The left testis measures 4.1 x 2.3 x 3.1 cm. Symmetric normal grayscale appearance to both testes. There is normal vascular flow to both testes. The right e pididymis is normal with normal vascular flow. The left epididymis is normal with normal vascular robina w. There is no varicocele or hydrocele. IMPRESSION: 1. Normal scrotal ultrasound. Reviewed, dictated and finalized at location A. TREATER
== END 2021-06-10 10:24 | disposition home or self-care (01) ==
LOC: ANHIMG 10:27
PROVIDERS: PCP Emergency Medicine; Visit Provider Emergency Medicine
DX: N50.89 Other specified disorders of the male genital organs (principal)
CPT/HCPCS: 76870; 93976

== ENCOUNTER 2021-10-25 20:01 | Emergency (ER) | payer OTHER, MEDICAID, SELFPAY ==
--- NOTE | ~2021-10-25 | XR_ITS ---
EXAMINATION: XR chest 1V portable 10/25/2021 21:47 INDICATION: Dizziness. Covid. PROCEDURE: AP portable chest COMPARISON: Comparison to multiple prior studies sequentially, with oldest reviewed study dated 07/13. FINDINGS: The lungs are clear. The cardiomediastinal silhouette is within normal limits. There are no pleural effusions. There is no pneumothorax suspected. IMPRESSION: 1: NO ACUTE CARDIOPULMONARY DISEASE. Reviewed, dictated and finalized at location A.
--- NOTE | ~2021-10-25 | CT_ITS ---
EXAMINATION: CTA chest PE protocol DATE: 10/26/2021 00:39 INDICATION: Shortness of breath and cough. TECHNIQUE: Computed tomography angiography (CTA) of the chest was performed with 100 mL Omnipaque-350 intravenous contrast timed to evaluate the pulmonary arteries. Coronal maximum intensity projection 3D-reconstructions were created by the technologist. Automated exposure control and iterative reconst ruction technique were employed. The dose-length product was 1091.76 mGy-cm. COMPARISON: None. FINDINGS: There is no pneumonia or pleural effusion. The heart size is normal. No pericardial effusio n. There is no pulmonary embolus. The bones are unremarkable. IMPRESSION: 1. No pulmonary embolus. Reviewed, dictated and finalized at location A. IMPRESSION: 1. No pulmonary embolus.
--- NOTE | ~2021-10-25 | XR_ITS ---
EXAMINATION: XR hip BI 2V w AP pelvis DATE: 10/25/2021 23:08 INDICATION: Hip pain. TECHNIQUE: An anteroposterior view of the pelvis and 2 views of each hip were obtained. COMPARISON: None. FINDINGS: Bone alignment is normal. No fracture. There is mild osteoarthritis of the hips. IMPRESSION: 1. Mild osteoarthritis of the hips. Reviewed, dictated and finalized at location A.
--- NOTE | ~2021-10-25 | CT_ITS ---
EXAMINATION: CT brain wo con DATE: 10/26/2021 00:40 INDICATION: Dizziness. TECHNIQUE: Computed tomography (CT) of the head was performed without intravenous contrast. The mA wa s adjusted according to patient size. Iterative reconstruction technique was employed. The dose-lengt h product was 605.33 mGy-cm. COMPARISON: Head CT 11/29/2016 FINDINGS: There is no acute ischemic infarct or intracranial hemorrhage. Again seen is a 2.0 cm pinea l cyst. The ventricles are normal in size. There is mucosal thickening in the paranasal sinuses, wors t in right maxillary sinus. The mastoid air cells are normal. The orbits are normal. IMPRESSION: 1. 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 Reviewed, dictated and finalized at location A.
[2021-10-25 20:41] VITALS: BP 142/59; PULSE 120; RESP 20; TEMP 38.4; O2SAT 98
[2021-10-25 21:24] VITALS: O2SAT 98
[2021-10-25 21:28] VITALS: BP 124/69; PULSE 120; RESP 19; TEMP 39.3; O2SAT 97
[2021-10-25 22:05] LABS: Hematocrit 40.4 % (42.0-52.0); Hemoglobin 13.5 g/dL (14.0-18.0); Mean Corpuscular HGB Conc 33.4 g/dl (32-36); Mean Corpuscular Hemoglobin 28.8 pg (26-34); Mean Corpuscular Volume 86.3 fl (80-100); Mean Platelet Volume 10.7 fl (7.4-10.4); Platelet Count Result 165 k/mm3 (150-375); Red Blood Count 4.68 M/mm3 (4.6-6.20); Red Cell Distribution Width 12.1 % (11.5-14.5); White Blood Count 4.5 K/mm3 (4.5-10.0)
[2021-10-25 22:15] LABS: Alanine Aminotransferase 41 U/L (6-50); Albumin Level 4.2 g/dL (3.5-5.1); Alkaline Phosphatase 70 U/L (38-126); Anion Gap 7 mmol/L (8-16); Aspartate Amino Transferase 29 U/L (17-59); Bilirubin,Total 0.3 mg/dL (0.2-1.3); Blood Urea Nitrogen 13 mg/dL (9-20); Calcium 8.6 mg/dL (8.4-10.2); Carbon Dioxide 25 mmol/L (22-30); Chloride 103 mmol/L (98-107); Estimated CRCL calculation 136 ml/min; Estimated Glomerular Filt Rate > 60; Glucose 104 mg/dL (65-110); Potassium 4.1 mmol/L (3.4-5.0); Sodium 135 mmol/L (137-145)
[2021-10-25 22:16] LABS: INR 1.1; Prothrombin Time 14.1 Seconds (11.1-14.7)
[2021-10-25 22:17] LABS: Partial Thromboplastin Time 36.1 SECONDS (22.3-36.8)
[2021-10-25 22:22] LABS: Atypical Lymphocytes Present; Band Neutrophils Percent 2 % (0-6); Eosinophils Absolute Manual 0.04 K/mm3 (0.02-0.5); Eosinophils Percent Manual 1 % (0-4); Lymphocytes Absolute Manual 0.45 K/mm3 (1.1-4.5); Lymphocytes Percent Manual 10 % (18-44); Monocytes Absolute Manual 0.67 K/mm3 (0.1-0.90); Monocytes Percent Manual 15 % (3-9); Neutrophils Absolute Manual 3.33 K/mm3 (1.3-6.7); Neutrophils Percent Manual 72 % (46-73); Platelet Estimate Adequate (Adequate); Total Cells Counted 100
[2021-10-25 22:22] LABS: Appearance Urine Clear (Clear); Bilirubin Urine Negative (Negative); Blood Urine Negative (Negative); Color Urine Yellow (Yellow); Glucose Urine UA Negative (Negative); Ketones Urine Negative (Negative); Leukocyte Esterase Ur Negative LEU/UL (Negative); Nitrate Urine Negative (Negative); Protein Urine Negative (Negative); Urobilinogen Urine 0.2 mg/dL (<2.0); pH Urine 7.5 (5.0-9.0)
[2021-10-25 22:26] LABS: Add Urine Microscopic? NO; Mucus Urine Rare /lpf; RBC Urine 0-2 /hpf (0-2); WBC Urine 0-3 /hpf
--- NOTE | 2021-10-25 22:47 | ED.URI ---
HPI - URI/Sore Throat General Chief Complaint: Upper Respiratory Infection Stated Complaint: dizzy, covid + Time Seen by Provider: 10/25/21 21:39 Source: patient Mode of arrival: ambulatory Limitations: no limitations History of Present Illness HPI Narrative: This is a 31-year-old male that presents to the emergency department for cold symptoms present over the last couple of days. Reports fever, cough, congestion, sore throat. Also reports generalized weakness and dizziness. Patient tested positive for COVID yesterday. He is not vaccinated. Reports some chest discomfort. Denies shortness of breath or lower extremity edema. Related Data Home Medications Medication Instructions Recorded Confirmed lisinopril 5 mg tablet (Zestril) 5 mg PO DAILY 04/13/20 04/13/20 omeprazole 40 mg capsule,delayed 40 mg PO DAILY 04/13/20 04/13/20 release Allergies Allergy/AdvReac Type Severity Reaction Status Date / Time No Known Allergies Allergy Verified 10/25/21 21:26 Review of Systems Review of Systems: CONSTITUTIONAL: Reports fever ENT: Reports congestion, sore throat CARDIOVASCULAR: Reports chest pain. Denies edema. RESPIRATORY: Reports cough. Denies dyspnea. GASTROINTESTINAL: Denies vomiting MUSCULOSKELETAL: Reports joint pain, and myalgia. All systems reviewed & are unremarkable except as noted in HPI and below PMFSH Past Medical History Medical History Anxiety History of gastroesophageal reflux (GERD) Hypertension Obesity Surgical History Surgical History No history of previous surgery Family History Family History Father Hypertension Diabetes mellitus Mother Hypertension Social History Social History Smoking status: Former smoker Tobacco type: cigarettes Second hand tobacco smoke exposure: Yes Smoking end date: 06/15/15 Alcohol intake: current Substance use: never Additional living arrangements comments: significant other Gender identity (if verbalized by the patient): Male Sexual Orientation (if Verbalized by the Patient): Straight or Heterosexual Exam Narrative: GENERAL: Well-appearing, well-nourished, and in no acute distress. HEAD: Normocephalic, atraumatic. EYES: PERRLA and EOMI. ENT: Nares clear, no rhinorrhea or epistaxis. Mucous membranes moist. Oropharynx without tonsillar hypertrophy exudate or other lesions. Bilateral TMs pearly solitario non-bulging NECK: Supple. No adenopathy or masses. CHEST: Clear to auscultation. No respiratory distress. No wheezes rales or rhonchi HEART: Regular rate and rhythm. No murmur heard. Normal peripheral pulses. ABDOMEN: Soft, nontender, nondistended, normal active bowel sounds. EXTREMITIES: Normal range of motion. No edema. Strength equal in bilateral upper and lower extremities (5/5) SKIN: Warm, dry, no rash. NEURO: No focal deficits. Alert and oriented x3. Cranial nerves II through XII grossly intact. Normal evsl-nd-prti PSYCH: Normal mood and affect Course Vital Signs Vital signs: Vital Signs Temperature 101.1 F H 10/25/21 20:41 Pulse Rate 120 H 10/25/21 20:41 Respiratory Rate 20 10/25/21 20:41 Blood Pressure 142/59 H 10/25/21 20:41 Pulse Oximetry 98 10/25/21 20:41 Oxygen Delivery Room Air 10/25/21 20:41 Temperature 102.7 F H 10/25/21 21:28 Pulse Rate 120 H 10/25/21 21:28 Respiratory Rate 19 10/25/21 21:28 Blood Pressure 124/69 10/25/21 21:28 Pulse Oximetry 97 10/25/21 21:28 Oxygen Delivery Room Air 10/25/21 21:24 MDM - URI/Sore Throat MDM Narrative Medical decision making narrative: Patient presents to the emergency department with cold symptoms present over the last couple of days. Tested positive for COVID yesterday. Reporting dizziness and shortness of breath.
[2021-10-25 23:02] LABS: Creatine Kinase 81 U/L (55-170)
[2021-10-25 23:15] LABS: Troponin I < 0.012 ng/mL (0.000-0.034)
[2021-10-25 23:51] LABS: SARS-CoV-2 RNA PCR Positive
--- NOTE | 2021-10-26 | ECG_ITS ---
Measurements Intervals [place] Rate: 98 P: 42 [place]: 174 QRS: 36 QRSD: 93 T: 13 QT: 319 QTc: 409 Interpretive Statements SINUS RHYTHM MINIMAL Q WAVES- INFERIOR LEADS BORDERLINE ECG Electronically Signed On 10-26-2021 8:17:39 CDT by Crispin Girard D.O.
[2021-10-26] MEDS: SODIUM CHLORIDE 0.9% IV 1,000 ML 999 ML IV CONT (00:12)
[2021-10-26] MEDS: PANTOPRAZOLE SODIUM IV 40 MG VIAL IV PUSH (00:14)
[2021-10-26] MEDS: ONDANSETRON INJ 4 MG/2 ML VIAL IV PUSH (00:16)
[2021-10-26] MEDS: MECLIZINE HCL 25 MG TABLET PO (00:19)
[2021-10-26 02:38] VITALS: BP 130/66; PULSE 101; RESP 19; O2SAT 98
== END 2021-10-26 02:36 | disposition home or self-care (01) ==
PROVIDERS: Physician Assistant; Emergency Provider Emergency Medicine; PCP Emergency Medicine
DX: U07.1 COVID-19 (principal); K21.9 Gastro-esophageal reflux disease without esophagitis; I10 Essential (primary) hypertension; E66.9 Obesity, unspecified; Z68.39 Body mass index [BMI] 39.0-39.9, adult; Z87.891 Personal history of nicotine dependence; R94.31 Abnormal electrocardiogram [ECG] [EKG]; Z28.310 Unvaccinated for COVID-19; E34.8 Other specified endocrine disorders; M16.0 Bilateral primary osteoarthritis of hip
CPT/HCPCS: 36415; 70450; 71045; 71275; 73521; 80053; 81003; 82550; 84484; 85025; 85380; 85610; 85730; 93005; 96365; 96366; 96375; 99284; A9270; C9113; C9803; J0131; J2405; J7030; Q9967; U0003; U0005

== ENCOUNTER 2022-01-11 17:47 | Emergency (ER) | payer OTHER, MEDICAID, SELFPAY ==
[2022-01-11 17:55] VITALS: BP 144/73; PULSE 83; RESP 20; TEMP 36.5; O2SAT 99
--- NOTE | 2022-01-11 18:00 | ED.URI ---
HPI - URI/Sore Throat General Chief Complaint: Upper Respiratory Infection Stated Complaint: uri Time Seen by Provider: 01/11/22 18:00 Source: patient Mode of arrival: ambulatory Limitations: no limitations History of Present Illness HPI Narrative: Mr. Redding is a 31-year-old male patient presenting to the clinic today with complaints of sinus headache, nasal congestion, and productive cough over 1 week. He denies any fever or chills. He denies any known exposure to admit for COVID, flu, or MD elicited complaint: cough, nasal congestion and sinus pain Related Data Home Medications Medication Instructions Recorded Confirmed lisinopril 5 mg tablet (Zestril) 5 mg PO DAILY 04/13/20 04/13/20 omeprazole 40 mg capsule,delayed 40 mg PO DAILY 04/13/20 04/13/20 release Allergies Allergy/AdvReac Type Severity Reaction Status Date / Time No Known Allergies Allergy Verified 10/25/21 21:26 Review of Systems Review of Systems: Pertinent positives per HPI. Patient denies any fever, chills, rash, visual changes, dizziness, cough, shortness of breath, chest pain, palpitations, nausea, vomiting, diarrhea, constipation, abdominal pain, or any urinary issues. PMFSH Past Medical History Medical History Anxiety History of gastroesophageal reflux (GERD) Hypertension Obesity Surgical History Surgical History No history of previous surgery Family History Family History Father Hypertension Diabetes mellitus Mother Hypertension Social History Social History Smoking status: Former smoker Tobacco type: cigarettes Second hand tobacco smoke exposure: Yes Smoking end date: 06/15/15 Alcohol intake: current Substance use: never Additional living arrangements comments: significant other Gender identity (if verbalized by the patient): Male Sexual Orientation (if Verbalized by the Patient): Straight or Heterosexual Comments At the time of my signature, I reviewed and agree with the nursing past medical, surgical, social, and family history. There is no relevant family history pertinent to the patient complaint. Exam Narrative: General: Well-developed, well nourished, in no apparent distress Head: Normocephalic, atraumatic Eyes: Pupils equally round and reactive to light bilaterally, EOM intact, sclera and conjunctive clear, no discharge, lids normal Ears: TMs intact and clear, ear canals clear, no drainage, grossly hearing normal. Nose: Nares patent, no discharge, no inflammation, no sinus tenderness. Mouth: Oral pharynx without lesions or masses, good dentition, MMM. Neck: Supple, trachea midline, no enlargement of anterior or posterior cervical nodes, no thyroid masses or goiter palpable. Cardio: Regular rate and rhythm, s1 and s2 normal, no murmur appreciated. Resp: Clear to auscultation bilaterally, no rhonchi, rales, wheezing or rubs Course Course Emergency Course: Portions of this record may have been created with voice recognition software. Level of Care: Express Care Visit Vital Signs Vital signs: Vital signs reviewed MDM - URI/Sore Throat MDM Narrative Medical decision making narrative: At the time of visit patient is resting comfortably on the exam table. I suspect the patient has acute bacterial rhinosinusitis. I will treat with a prescription for some Augmentin as well as some prednisone. Supportive measures were discussed with the patient he voiced understanding of discharge instructions and agrees to treatment plan. Differential Diagnosis Differential diagnosis: Likely upper respiratory infection, otitis media, sinusitis, viral infection, bronchitis, influenza, pharyngitis and other (COVID) Discharge Plan Discharge Clinical Impression: Acute rhinosinusitis
== END 2022-01-11 18:10 | disposition home or self-care (01) ==
PROVIDERS: Emergency Provider Nurse Practitioner Family; PCP Emergency Medicine
DX: J01.90 Acute sinusitis, unspecified (principal); I10 Essential (primary) hypertension; E66.9 Obesity, unspecified; Z68.39 Body mass index [BMI] 39.0-39.9, adult; Z87.891 Personal history of nicotine dependence
CPT/HCPCS: 99213; G0463

== ENCOUNTER 2022-03-06 09:49 | Emergency (ER) | payer BC, MEDICAID, SELFPAY ==
[2022-03-06 10:22] VITALS: BP 163/80; PULSE 98; RESP 18; TEMP 36.9; O2SAT 99
--- NOTE | 2022-03-06 10:29 | ED.URI ---
HPI - URI/Sore Throat General Chief Complaint: Upper Respiratory Infection Stated Complaint: Sinus Time Seen by Provider: 03/06/22 10:25 Source: patient, RN notes reviewed and old records reviewed Mode of arrival: ambulatory Limitations: no limitations History of Present Illness HPI Narrative: 31-year-old male presents to the [facility] with sinus congestion, sore throat. Patient stated that he had sinus symptoms and cough for about 10 days. States that he Sunday he was getting better. Woke up yesterday morning with feeling worse. MD elicited complaint: fever, rhinorrhea, nasal congestion and sinus pain Related Data Home Medications Medication Instructions Recorded Confirmed lisinopril 5 mg tablet (Zestril) 5 mg PO DAILY 04/13/20 03/06/22 omeprazole 40 mg capsule,delayed 40 mg PO DAILY 04/13/20 03/06/22 release Allergies Allergy/AdvReac Type Severity Reaction Status Date / Time No Known Allergies Allergy Verified 10/25/21 21:26 Review of Systems Review of Systems: All systems reviewed & are unremarkable except as noted in HPI and below Constitutional: Constitutional: Reports as per HPI, Reports body ache(s), Reports chills and Denies fever(s) Eyes: Eyes: Reports no additional eye complaints ENT: Reports as per HPI and Reports nasal congestion Cardiovascular: Cardiovascular: Reports no additional cardiovascular complaints Respiratory: Respiratory: Reports as per HPI, Reports cough, Denies dyspnea and Denies wheezing Gastrointestinal: Gastrointestinal: Reports no additional gastrointestinal complaints Musculoskeletal: Musculoskeletal: Reports no additional musculoskeletal complaints Integumentary/Breasts: Skin/Breast: Reports system reviewed and no additional complaints, except as docu Neurologic: Reports system reviewed and no additional complaints, except as documented Psychiatric: Psychiatric: Reports no additional psychiatric complaints Allergic/Immunologic: Allergic/Immunologic: Reports no additional allergic/immunologic complaints [facility] Past Medical History Medical History Anxiety History of gastroesophageal reflux (GERD) Hypertension Obesity Surgical History Surgical History No history of previous surgery Family History Family History Father Hypertension Diabetes mellitus Mother Hypertension Social History Social History (Reviewed 03/06/22 @ 16:01 by KHAI Olivares Smoking status: Former smoker Tobacco type: cigarettes Second hand tobacco smoke exposure: Yes Smoking end date: 06/15/15 Alcohol intake: current Substance use: never Additional living arrangements comments: significant other Gender identity (if verbalized by the patient): Male Sexual Orientation (if Verbalized by the Patient): Straight or Heterosexual Comments At the time of my signature, I reviewed and agree with the nursing past medical, surgical, social, and family history. There is no relevant family history pertinent to the patient complaint. Exam Const: General: comfortable, no acute distress, well developed, alert, ill appearing and well nourished Nutritional Appearance: well nourished Orientation/consciousness: patient oriented x3 Limitations: no limitations HENMT: Head: normal to inspection Ears: external ears normal, TM's normal bilaterally and EAC's normal Face/Nose/Sinus: Normal external nose present Face and sinus: sinus tenderness frontal and maxillary Mouth: Yes Normal oral and palatal mucosa present, Yes lip normal and Yes moist mucous membranes Throat: posterior oropharynx normal and uvula midline Eyes: General: appearance normal, both eyes and all related structures Pupils: Equal, round and reactive pupils present Neck: Neck: normal visual inspection, full ROM, no lymphadenopathy and no m
== END 2022-03-06 11:01 | disposition home or self-care (01) ==
PROVIDERS: Emergency Provider Nurse Practitioner; PCP Emergency Medicine
DX: J40 Bronchitis, not specified as acute or chronic (principal); J32.9 Chronic sinusitis, unspecified; Z20.822 Contact with and (suspected) exposure to COVID-19; K21.9 Gastro-esophageal reflux disease without esophagitis; I10 Essential (primary) hypertension; E66.9 Obesity, unspecified; Z68.39 Body mass index [BMI] 39.0-39.9, adult
CPT/HCPCS: 87426; 87804; 99213; C9803; G0463

== ENCOUNTER 2022-04-25 16:47 | Outpatient (CLI) | payer BC, MEDICAID, SELFPAY ==
--- NOTE | ~2022-04-25 | MR_ITS ---
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 TECHNIQUE: Magnetic resonance imaging (MRI) of the brain and brainstem was performed without and with 20 mL MultiHance intravenous contrast. COMPARISON: Brain MRI 05/25/2020, 01/28/2016 FINDINGS: There is a 1.8 x 1.4 x 1.2 cm nonenhancing mass in the pineal gland that demonstrates incre ased T2-weighted signal intensity on FLAIR-weighted images, likely a proteinaceous cyst. There is no intracranial hemorrhage or acute ischemic infarct. The ventricles are normal in size. The orbits are normal. There is complete opacification of right maxillary sinus, which is slightly smaller than the left. The mastoid air cells are normal. IMPRESSION: 1. 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 2. 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 This finding is at risk of progression to silent sinus syndrome. Reviewed, dictated and finalized at location A. ORDER BILLER IMPRESSION: 1. 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 2. Chronic complete opacification of right maxillary sinus, which is slightly s maller than the left. This finding is at risk of progression to silent sinus sy ndrome.
== END 2022-04-25 16:48 | disposition home or self-care (01) ==
PROVIDERS: PCP Emergency Medicine
DX: D44.5 Neoplasm of uncertain behavior of pineal gland (principal)
CPT/HCPCS: 70553; A9577

== ENCOUNTER 2022-05-21 18:31 | Emergency (ER) | payer BC, OTHER, SELFPAY ==
--- NOTE | ~2022-05-21 | CT_ITS ---
Non-contrast Head CT History: Headache COMPARISON: 10/26/2021 Technique: Axial non-contrast imaging of the brain was performed. Dose reduction technique was used on this scan by utilizing automated exposure control and iterative reconstruction technique. The dose -length product (DLP) was 605.33 mGy-cm. Findings: There is no evidence of intracranial hemorrhage, mass lesion, or acute infarct. Brain par enchyma appears normal. The ventricles and subarachnoid spaces are normal in size. The calvarium ap pears normal. The visualized paranasal sinuses and mastoid air cells are clear. Impression: No significant abnormality seen. Reviewed, dictated and finalized at location . ATOLOGY PHYSICIAN ASSISTANT Impression: No significant abnormality seen.
[2022-05-21 18:53] VITALS: BP 178/99; PULSE 93; RESP 18; TEMP 36.3; O2SAT 98
[2022-05-21 21:08] VITALS: BP 138/89; PULSE 83; RESP 14; O2SAT 98
--- NOTE | 2022-05-21 22:00 | ED.GENADULT ---
HPI - General Adult General Chief complaint: Unspecified Stated complaint: panic attack Time Seen by Provider: 05/21/22 21:07 History of Present Illness HPI narrative: 31-year-old male presents to the emergency department for evaluation of some headache and arm numbness. Patient states earlier today he had episode of some headache and tingling down his left arm. Patient states this was associated with a panic attack. Patient is unsure whether he had a panic attack in the symptoms or if his symptoms preceded the panic attack. Patient states his symptoms have resolved at this point. Patient is no longer having any issues with anxiety. Patient is currently being worked up for symptoms of fatigue. Patient has had a recent MRI evaluating a pineal cyst. Patient did have follow-up with neurology for this. Patient is also scheduled to follow-up with infectious disease due to him testing positive for outpatient testing for Lyme disease. Related Data Home Medications Medication Instructions Recorded Confirmed lisinopril 5 mg tablet (Zestril) 5 mg PO DAILY 04/13/20 03/06/22 omeprazole 40 mg capsule,delayed 40 mg PO DAILY 04/13/20 03/06/22 release Allergies Allergy/AdvReac Type Severity Reaction Status Date / Time No Known Allergies Allergy Verified 05/21/22 18:56 Review of Systems Review of Systems: CONSTITUTIONAL: Denies fever, chills, or sweats. EYES: Denies visual changes, redness, or discharge. ENT: Denies rhinorrhea, congestion, sore throat, or otalgia. CARDIOVASCULAR: Denies chest pain, palpitations, or edema. RESPIRATORY: Denies cough or dyspnea. GASTROINTESTINAL: Denies abdominal pain, nausea, vomiting, or diarrhea. GENITOURINARY: Denies dysuria or hematuria. SKIN: Denies rash or itching. MUSCULOSKELETAL: Denies back pain, joint pain, or myalgia. NEUROLOGIC: See HPI [facility] Past Medical History Medical History Anxiety History of gastroesophageal reflux (GERD) Hypertension Obesity Surgical History Surgical History No history of previous surgery Family History Family History Father Hypertension Diabetes mellitus Mother Hypertension Social History Social History Smoking status: Former smoker Tobacco type: cigarettes Second hand tobacco smoke exposure: Yes Smoking end date: 06/15/15 Alcohol intake: current Substance use: never Additional living arrangements comments: significant other Occupation/Education: occupation Gender identity (if verbalized by the patient): Male Sexual Orientation (if Verbalized by the Patient): Straight or Heterosexual Exam Narrative: APPEARANCE: Well appearing, no pain, no distress, well-nourished. HEAD: normocephalic, atraumatic. EYES: PERRLA/EOMI, conjunctivae clear. NOSE: Normal no drainage NECK: Supple. No adenopathy, no masses. RESPIRATORY: Airway patent, respirations nonlabored. Clear to auscultation bilaterally, no rales, rhonchi, wheezing. CARDIOVASCULAR: Regular rate and rhythm without murmurs rubs or gallops. ABDOMINAL: Soft, nontender, nondistended, normal bowel sounds MUSCULOSKELETAL: Moves all extremities. Strength/ROM intact, No edema, No calf tenderness. NEURO: Alert. Cranial nerves II through XII intact. Grossly intact. No drift, no ataxia, normal strength and reflexes SKIN: Warm, dry. Normal Color PSYCHIATRIC: Normal affect/mood. Course Course Emergency Course: Patient symptoms were close associated with a panic attack. Patient has had a recent MRI that was normal. Patient has a normal comprehensive neuro exam. All of patient's symptoms are completely resolved at this time. Patient denies any numbness or weakness and denies any associated anxiety at this time. Patient was updated the results of his CT. Patient michael
[2022-05-21 23:00] VITALS: BP 119/73; PULSE 75; RESP 19; O2SAT 95
== END 2022-05-21 23:40 | disposition home or self-care (01) ==
PROVIDERS: Emergency Provider Emergency Medicine; PCP Emergency Medicine
DX: F41.9 Anxiety disorder, unspecified (principal); R20.2 Paresthesia of skin; I10 Essential (primary) hypertension; K21.9 Gastro-esophageal reflux disease without esophagitis; E66.9 Obesity, unspecified; Z68.39 Body mass index [BMI] 39.0-39.9, adult; Z87.891 Personal history of nicotine dependence
CPT/HCPCS: 70450; 99284

== ENCOUNTER 2022-05-25 08:14 | Outpatient (CLI) | payer BC, SELFPAY ==
--- NOTE | ~2022-05-25 | US_ITS ---
Limited Abdominal Sonogram: Real-time sonographic imaging of the right upper quadrant was performed. Clinical History: Abdominal pain Findings: The liver appears somewhat heterogeneous, with no evidence of mass lesion or bile duct dil atation. Main portal vein demonstrates normal direction of flow. The gallbladder is well distended, a nd appears normal with no evidence of gallstone or wall thickening. The common bile duct measures 5 m m. The visualized pancreas, aorta, and IVC are unremarkable. Impression: Possible fatty infiltration of liver. Reviewed, dictated and finalized at location M. R AND BLENDER Impression: Possible fatty infiltration of liver.
== END 2022-05-25 08:15 ==
PROVIDERS: PCP Emergency Medicine; Visit Provider Emergency Medicine
DX: R10.11 Right upper quadrant pain (principal)
CPT/HCPCS: 76705

== ENCOUNTER 2022-11-02 17:15 | Emergency (ER) | payer BC, SELFPAY ==
--- NOTE | 2022-11-02 17:36 | ED.URI ---
HPI - URI/Sore Throat General Chief Complaint: Upper Respiratory Infection Stated Complaint: Sinus Time Seen by Provider: 11/02/22 17:16 Source: patient Mode of arrival: ambulatory Limitations: no limitations History of Present Illness HPI Narrative: Wilbur is a 32-year-old male patient presenting to the clinic today with complaints of sinus congestion, sinus pressure, headache, sore throat, body aches, chills, and neck pain for over 1 week. He reports he thinks he may have a sinus infection. He has been coughing up green and yellow phlegm MD elicited complaint: fever, sore throat, nasal congestion and sinus pain Related Data Home Medications Medication Instructions Recorded Confirmed lisinopril 5 mg tablet (Zestril) 5 mg PO DAILY 04/13/20 03/06/22 omeprazole 40 mg capsule,delayed 40 mg PO DAILY 04/13/20 03/06/22 release Allergies Allergy/AdvReac Type Severity Reaction Status Date / Time No Known Allergies Allergy Verified 11/02/22 17:32 Review of Systems Review of Systems: Pertinent positives per HPI. Patient denies any fever, chills, rash, headache, visual changes, dizziness, cough, shortness of breath, chest pain, palpitations, nausea, vomiting, diarrhea, constipation, abdominal pain, or any urinary issues. [facility] Past Medical History Medical History Anxiety History of gastroesophageal reflux (GERD) Hypertension Obesity Surgical History Surgical History No history of previous surgery Family History Family History Father Hypertension Diabetes mellitus Mother Hypertension Social History Social History Smoking status: Former smoker Tobacco type: cigarettes Second hand tobacco smoke exposure: Yes Smoking end date: 06/15/15 Alcohol intake: current Substance use: never Additional living arrangements comments: significant other Occupation/Education: occupation Gender identity (if verbalized by the patient): Male Sexual Orientation (if Verbalized by the Patient): Straight or Heterosexual Comments At the time of my signature, I reviewed and agree with the nursing past medical, surgical, social, and family history. There is no relevant family history pertinent to the patient complaint. Exam Narrative: General: Well-developed, well nourished, in no apparent distress Head: Normocephalic, atraumatic Eyes: Pupils equally round and reactive to light bilaterally, EOM intact, sclera and conjunctive clear, no discharge, lids normal Ears: TMs intact and congested, ear canals clear, no drainage, grossly hearing normal. Nose: Nares patent, clear nasal discharge, no inflammation, no sinus tenderness. Mouth: Oral pharynx red without lesions or masses, good dentition, MMM. Postnasal drip Neck: Supple, trachea midline,enlargement of anterior and posterior cervical nodes, no thyroid masses or goiter palpable. Cardio: Regular rate and rhythm, s1 and s2 normal, no murmur appreciated. Resp: Clear to auscultation bilaterally, no rhonchi, rales, wheezing or rubs Course Course Emergency Course: Portions of this record may have been created with voice recognition software. Level of Care: Express Care Visit Vital Signs Vital signs: Vital signs reviewed MDM - URI/Sore Throat MDM Narrative Medical decision making narrative: At the time of visit patient is resting comfortably on exam table. COVID, strep, and mono testing was performed in the clinic today and were negative. I suspect the patient has a sinus infection. Prescription for Augmentin and prednisone was sent to the pharmacy. Supportive measures were discussed with the patient he voiced understanding discharge instructions agrees to treatment plan. Differential Diagnosis Differe
[2022-11-02 17:46] VITALS: BP 132/69; PULSE 92; RESP 20; TEMP 37.8; O2SAT 100
== END 2022-11-02 18:26 | disposition home or self-care (01) ==
PROVIDERS: Emergency Provider Nurse Practitioner Family; PCP Emergency Medicine
DX: J01.90 Acute sinusitis, unspecified (principal); Z20.822 Contact with and (suspected) exposure to COVID-19; Z87.891 Personal history of nicotine dependence; K21.9 Gastro-esophageal reflux disease without esophagitis; I10 Essential (primary) hypertension; E66.9 Obesity, unspecified; Z68.41 Body mass index [BMI] 40.0-44.9, adult
CPT/HCPCS: 36416; 86308; 87081; 87426; 87880; 99213; C9803; G0463

== ENCOUNTER 2022-12-05 11:31 | Outpatient (CLI) | payer BC, SELFPAY ==
--- NOTE | 2022-12-05 11:40 | ECG_ITS ---
Measurements Intervals [place] Rate: 81 P: 63 LA: 186 QRS: 52 QRSD: 97 T: 37 QT: 323 QTc: 376 Interpretive Statements SINUS RHYTHM WITH SINUS ARRHYTHMIA COMPARED TO ECG 10/26/2021 01:47:08 SINUS ARRHYTHMIA NOW PRESENT Electronically Signed On 12-06-2022 11:27:14 CDT by Jake Montiel M.D.
== END 2022-12-05 11:32 | disposition home or self-care (01) ==
LOC: ANHSURGERY 11:36
PROVIDERS: PCP Emergency Medicine; Visit Provider Surgery
DX: K42.9 Umbilical hernia without obstruction or gangrene (principal); I10 Essential (primary) hypertension; Z01.818 Encounter for other preprocedural examination
CPT/HCPCS: 36415; 86850; 86900; 86901; 93005

== ENCOUNTER 2022-12-07 01:10 | Day surgery (SDC) | payer BC, SELFPAY ==
[2022-12-04 13:00] VITALS: BMI 40.4
--- NOTE | 2022-12-04 13:05 | PC.NURSE ---
Report to the Outpatient Waiting Room, entrance under the green pavilion located off [facility], at time 10:00 on date 12/07/22. Planned Procedure Time: 12:00. Time changes happen often and if your time is changed the preop area will call you the afternoon before. - You and your visitor will be asked to self-screen and do not enter if you have any COVID symptoms. - A mask is optional within the hospital at this time. Patients may have clear liquids (water, carbonated beverages, clear teas, apple juice) until 3 hours prior to surgery (9:00) with a maximum of 20 ounces. - No food from midnight until time of surgery Take the following medications with a SIP of water the morning of surgery: NONE DO NOT STOP ANY OF YOUR OTHER PRESCRIPTION MEDICATIONS PRIOR TO SURGERY ?EXCEPT THE FOLLOWING Medications to discontinue per physician: N/A Date to take last dose: N/A Please no make-up, nail sao tomean, hairspray, perfume, deodorant, or body powder the day of surgery. No jewelry (including any body piercings) or valuables the day of surgery, leave them at home. Please take a shower or bath the night before, or the morning of, surgery with an antibacterial soap (HIBICLENS). Wear comfortable, loose fitting clothing. - Jewelry must be removed prior to entering the operating room. Rings and piercings that are not removed may be cut off. - The hospital will not accept responsibility for valuables. - Please leave all valuables, including medications, at home the day of surgery. If you are going home after surgery, a licensed commercial truck driver must drive you home. - NO public transportation without another adult if you receive anesthesia. - We recommend that an adult stay with you for 24 hours following discharge. - We also recommend that you do not drive, make important decision, drink alcoholic beverages, or take any drugs that were not prescribed by your health care provider for at least 24 hours after your discharge time. Follow any additional instructions given to you from your surgeon. If you or anyone in your household have experienced Covid symptoms in the past week, please notify your surgeon or the nurse liaison at the phone number below for possible testing. Telephone instructions given to PT Jorge FORBES and asked if any additional questions and then verbalized understanding. Patient advised to call surgeon office or pre surgery nurse liaison [phone] if any additional questions.
[2022-12-07] VITALS (12 sets, daily range): BP systolic 116–160; BP diastolic 60–83; PULSE 71–95; RESP 11–22; TEMP 36.7–36.9; O2SAT 92–100; BMI 40.5
[2022-12-07] MEDS: LACTATED RINGERS 1,000 ML 30 ML IV CONT ×2 (10:30→15:13)
[2022-12-07] MEDS: ACETAMINOPHEN 500 MG TABLET 1000 MG PO (10:42)
[2022-12-07] MEDS: KETOROLAC 15 MG/ML VIAL (*BKC) IV PUSH (10:42)
--- NOTE | 2022-12-07 11:16 | P.PNAN_ITS ---
Anes - Initial Pre Proc Eval Procedure: Operation Date: 12/07/22 12:00 Proposed Procedures p Robotic Assisted Umbilical Hernia Repair with Mesh - Maura Anaya MD Date/Time: 12/07/22 11:16 Surgeon: Maura Anaya MD Pre Op Diagnosis: Umb Hernia Patient Data Age: 32 Gender: M Height: 1.85 m Weight: 139.3 kg Last Vital Signs Temp 36.9 C 12/07/22 10:05 Pulse 86 12/07/22 10:05 Resp 16 12/07/22 10:05 BP 135/70 12/07/22 10:05 Pulse Ox 98 12/07/22 10:05 O2 Del Method Room Air 12/07/22 10:05 Allergies Allergy/AdvReac Type Severity Reaction Status Date / Time No Known Allergies Allergy Verified 12/07/22 10:20 Home Medications Medication Instructions Recorded Confirmed Type lisinopril 5 mg tablet (Zestril) 5 mg PO DAILY 04/13/20 12/07/22 History omeprazole 40 mg capsule,delayed 40 mg PO DAILY 04/13/20 12/07/22 History release Patient hx anesthesia problems: none Family hx anesthesia problems: none Results Review: All pre-operative results and documents have been reviewed as part of the pre- operative evaluation. [facility] Past Medical History Medical History Anxiety History of gastroesophageal reflux (GERD) Hypertension Obesity Surgical History Surgical History No history of previous surgery Family History Family History Father Hypertension Diabetes mellitus Mother Hypertension Social History Social History Smoking status: Current every day smoker Tobacco type: e-cigarettes/vaping Second hand tobacco smoke exposure: Yes Smoking end date: 06/15/15 Alcohol intake: current Drinks per week: 6 Substance use: never Substance use type: does not use Living arrangements: with family Additional living arrangements comments: significant other Occupation/Education: occupation Gender identity (if verbalized by the patient): Male Sexual Orientation (if Verbalized by the Patient): Straight or Heterosexual Spiritual care concerns: No Anes - Eval Final PreProcedure Day of Procedure 12/07/22 11:16 Patient weight: morbidly obese Heart: regular rate and rhythm Lungs: decreased breath sounds Airway: Mallampati scale class II Neurological: alert and oriented Last oral intake: >/= 8 hours ASA classification: III Emergent: no Anesthetic plan: proceed Anesthesia type and monitoring: general ETT and standard monitoring Results Review: All pre-operative results and documents have been reviewed as part of the pre- operative evaluation. Informed Consent: The patient's anesthetic plan and its attendant risks and benefits were discussed with the patient/family/POA. Questions were solicited and answers provided to the satisfaction of the patient/family/POA.
--- NOTE | 2022-12-07 12:00 | SUR.PREOP ---
1200- Patient notified procedure start time delayed and denying needs at this time.
--- NOTE | 2022-12-07 12:39 | WPDHPUPDATE1 ---
History and Physical Update Update Date/Time: 12/07/22 12:39 History and Physical has been reviewed, including an updated exam of the patient. There are NO changes in the patient's condition. Risks, benefits, and alternatives have been discussed and questions answered. Patient agrees to proceed with procedure.
[2022-12-07] MEDS: ceFAZolin 3 GM/D5W 100 ML 100 ML IVPB (12:57)
[2022-12-07] MEDS: BUPIVACAINE/EPINEPHRINE 0.5% 50 ML VIAL 30 ML INFILTRATE (13:42)
--- NOTE | 2022-12-07 14:56 | W.PM.PROC2 ---
Procedure Note - Detailed Date of Procedure 12/07/22 Pre-op Diagnosis Incarcerated umbilical hernia containing loop of small intestine Post-op Diagnosis Same Procedure Performed Robotic assisted repair incarcerated umbilical hernia with defect measuring 4 cm Surgeon Maura Anaya MD Anesthesia General Indications 32 y/o M presenting c moderate sized symptomatic umbilical hernia Findings 4 cm umbilical hernia with incarcerated loop of small intestine Description of Procedure The patient was taken the operating room placed in the supine position. After adequate induction of general anesthesia, the patient was prepped and draped in normal sterile fashion. A time-out was then done to verify the patient's identity as well as the procedure being performed. I began by making a 8 mm incision in the left upper quadrant. Through this, a Veress needle was placed into the peritoneal cavity and CO2 gas was insufflated. After adequate pneumoperitoneum was achieved, a 8 mm trocar was placed through this incision. I then placed the laparoscope through this trocar site and under direct visualization I placed a 8 mm port in the left mid abdomen as well as an additional 8 mm port in the left lower abdomen. The robot was then docked to the 3 port sites. I then went to the robotic console. I began by identifying the hernia. A moderate-sized incarcerated umbilical hernia was noted. There was noted to be a loop of small intestine incarcerated within the hernia. Using gentle traction and blunt dissection, I was able to reduce this loop of small intestine back into the abdominal cavity. The intestine was examined and noted to be viable and free of any pathology. I created a preperitoneal flap approximately 6 cm lateral to the hernia. This flap was carried widely superior and inferior to the defect. I then was able to reduce this hernia. The hernia was noted to contain a large amount of preperitoneal fat. Once reduced, I also reduced and dissected out the hernia sac. I then carried the flap distally past the hernia. I then closed the approximately 4 cm defect with 0 strata fix suture. I then placed a 15 x [address] mesh into the abdominal cavity. The positional stitch was placed in the middle of the mesh and brought up centering the mesh over the defect. Once this was done, I used 2 O vicryl suture to suture the mesh to the abdominal wall. Once the mesh was sutured in, I was happy with our tension-free repair. The mesh was noted to have good overlap of the defect. I then closed the flap with 2 0 V lock. At this point, the robot was undocked and all ports were removed. All port sites were then closed with 4 O Monocryl subcuticular suture. The patient tolerated the procedure well, is extubated in the operating room postoperative, and will be transferred to the recovery room in stable condition. Implants 15 x [address] mesh Estimated Blood Loss 10 Drains No Packing No Pathology None sent Complications No immediate complications Condition Stable Disposition PACU [facility] Billing Surgery - Charge Forward: Surgery Billing
[2022-12-07] MEDS: fentaNYL CITRATE INJ (*CRX) 100 MCG/2 ML VIAL 25 MCG IV PUSH ×3 (16:02→16:20)
[2022-12-07] MEDS: oxyCODONE HCL (*CRX) 5 MG TAB IR PO (17:08)
== END 2022-12-07 18:24 | disposition home or self-care (01) ==
PROVIDERS: PCP Emergency Medicine; Visit Provider Surgery
PROC: (CPT 49594; principal; 2022-12-07 12:00)
DX: K42.0 Umbilical hernia with obstruction, without gangrene (principal); I10 Essential (primary) hypertension; F17.290 Nicotine dependence, other tobacco product, uncomplicated; E66.01 Morbid (severe) obesity due to excess calories; Z68.41 Body mass index [BMI] 40.0-44.9, adult
CPT/HCPCS: 49594; S2900; A9270; C1781; J0330; J0690; J1100; J1170; J1885; J2250; J2405; J2704; J3010; J7120

== ENCOUNTER 2023-01-12 13:08 | Emergency (ER) | payer BC, SELFPAY ==
--- NOTE | ~2023-01-12 | CT_ITS ---
EXAMINATION: CT abdomen pelvis w con INDICATION: Right-sided abdominal pain, history of laparoscopic hernia repair one month ago TECHNIQUE: Computed tomographic images of the abdomen and pelvis were obtained after the administrati on of 100 cc of Omnipaque 350 intravenous contrast. The dose-length product (DLP) was 1576.68 mGy-cm. Automated exposure control and iterative reconstruction technique were employed. COMPARISON: None available FINDINGS: The lung bases are clear. The heart size is normal. The liver, spleen, pancreas, gallbladde r, and adrenal glands are normal. There are punctate nonobstructing stones of the kidneys. No patholo gically enlarged abdominal or pelvic lymph nodes are identified. No free intraperitoneal gas or evide nce of bowel obstruction. The appendix is normal. There is inflammatory change in the abdomen anterio r to the surgical repair mesh. There is a small amount of fluid deep to the the umbilicus to the left of midline There is mild lumbar spondylosis. . IMPRESSION: 1. Small amount of inflammatory change and fluid adjacent to the umbilicus and anterior to the hernia repair mesh. Findings could be resolving postoperative change however, close follow-up is recommende d as infection could have a similar appearance. Reviewed, dictated and finalized at location [facility]. IMPRESSION: 1. Small amount of inflammatory change and fluid adjacent to the umbilicus and anterior to the hernia repair mesh. Findings could be resolving postoperative c hange however, close follow-up is recommended as infection could have a similar appearance.
[2023-01-12 13:25] VITALS: BP 139/87; PULSE 83; RESP 18; TEMP 36.8; O2SAT 98
[2023-01-12 13:39] LABS: Basophils Percent Auto 0.5 % (0.2-1.2); Eosinophils Absolute Auto 0.4 K/mm3 (0-0.3); Eosinophils Percent Auto 5.7 % (0-4.4); Hematocrit 42.9 % (42.0-52.0); Immature Granulocyte Absolute 0.02 K/mm3 (0.00-0.031); Immature Granulocyte Percent A 0.3 % (0-0.5); Lymphocytes Absolute Auto 1.94 K/mm3 (0.9-3.2); Lymphocytes Percent Auto 30.1 % (18.3-44.2); Mean Corpuscular HGB Conc 32.6 g/dl (32-36); Mean Corpuscular Hemoglobin 28.9 pg (26-34); Mean Corpuscular Volume 88.5 fl (80-100); Mean Platelet Volume 10.5 fl (7.4-10.4); Monocytes Absolute Auto 0.6 K/mm3 (0.1-0.6); Monocytes Percent Auto 9.8 % (2.6-8.5); Neutrophils Absolute Auto 3.5 K/mm3 (1.3-6.7); Neutrophils Percent Auto 53.6 % (45.5-73.1); Platelet Count Result 213 k/mm3 (150-375); Red Blood Count 4.85 M/mm3 (4.6-6.20); Red Cell Distribution Width 12.2 % (11.5-14.5); White Blood Count 6.4 K/mm3 (4.5-10.0)
[2023-01-12 13:50] LABS: Alanine Aminotransferase 35 U/L (6-50); Albumin Level 4.4 g/dL (3.5-5.1); Alkaline Phosphatase 85 U/L (38-126); Anion Gap 7 mmol/L (8-16); Aspartate Amino Transferase 23 U/L (17-59); Bilirubin,Total 0.6 mg/dL (0.2-1.3); Blood Urea Nitrogen 14 mg/dL (9-20); Calcium 9.4 mg/dL (8.4-10.2); Carbon Dioxide 28 mmol/L (22-30); Chloride 103 mmol/L (98-107); Estimated CRCL calculation 168 ml/min; Estimated Glomerular Filt Rate > 60; Glucose 106 mg/dL (65-110); Potassium 4.4 mmol/L (3.4-5.0); Sodium 138 mmol/L (137-145)
[2023-01-12 13:59] LABS: Appearance Urine Cloudy (Clear); Bacteria Urine None Seen /hpf; Bilirubin Urine Negative (Negative); Blood Urine Negative (Negative); Color Urine Yellow (Yellow); Glucose Urine UA Negative (Negative); Ketones Urine Negative (Negative); Leukocyte Esterase Ur Negative LEU/UL (Negative); Nitrate Urine Negative (Negative); Non Pathogenic Casts 0-2; Protein Urine Negative (Negative); RBC Urine 0-2 /hpf (0-2); Specific Grav Ur 1.023 (1.001-1.035); Squamous Epithelial Cell Urine None seen /hpf (Few); WBC Urine 0-5 /hpf
[2023-01-12 14:01] LABS: Add Urine Microscopic? YES
--- NOTE | 2023-01-12 15:07 | ED.GENADULT ---
HPI - General Adult General Chief complaint: Urogenital-Male Stated complaint: abdominal pain, nausea Time Seen by Provider: 01/12/23 14:35 History of Present Illness HPI narrative: Wilbur Redding is a 32 y/o male who presents with reports of one week of feeling nauseated, right flank pain that moves around to his mid abdomen. He states he had laparoscopic hernia repair 1 month ago. He reports of feeling constipated for 2 days, he had a small BM today . No vomiting/ no fever/chills/cough. Related Data Home Medications Medication Instructions Recorded Confirmed lisinopril 5 mg tablet (Zestril) 5 mg PO DAILY 04/13/20 01/03/23 omeprazole 40 mg capsule,delayed 40 mg PO DAILY 04/13/20 01/03/23 release Allergies Allergy/AdvReac Type Severity Reaction Status Date / Time No Known Allergies Allergy Verified 01/12/23 14:37 Review of Systems Review of Systems: CONSTITUTIONAL: Denies fever, chills, or sweats. EYES: Denies visual changes, redness, or discharge. ENT: Denies rhinorrhea, congestion, sore throat, or otalgia. CARDIOVASCULAR: Denies chest pain, palpitations, or edema. RESPIRATORY: Denies cough or dyspnea. GASTROINTESTINAL: reports right flank pain that moves around to right mid lower abdominal pain with nausea, No vomiting, or diarrhea. GENITOURINARY: Denies dysuria or hematuria. SKIN: Denies rash or itching. MUSCULOSKELETAL: Denies back pain, joint pain, or myalgia. NEUROLOGIC: Denies headache, numbness, dizziness, or weakness. PSYCHIATRIC: Denies anxiety or depression. [facility] Past Medical History Medical History Anxiety History of gastroesophageal reflux (GERD) Hypertension Obesity Surgical History Surgical History History of umbilical hernia repair robotic assisted repair incarcerated umbilical hernia with defect measuring 4 cm on 12/07/22 PDC No history of previous surgery Family History Family History Father Hypertension Diabetes mellitus Mother Hypertension Social History Social History Smoking status: Current every day smoker Tobacco type: e-cigarettes/vaping Second hand tobacco smoke exposure: Yes Smoking end date: 06/15/15 Alcohol intake: current Drinks per week: 6 Substance use: never Substance use type: does not use Living arrangements: with family Additional living arrangements comments: significant other Occupation/Education: occupation Gender identity (if verbalized by the patient): Male Sexual Orientation (if Verbalized by the Patient): Straight or Heterosexual Spiritual care concerns: No Exam Narrative: GENERAL: Well-appearing, well-nourished, and in no acute distress. HEAD: Normocephalic, atraumatic. EYES: PERRLA and EOMI. ENT: Nares clear, no rhinorrhea or epistaxis. Mucous membranes moist. Oropharynx without tonsillar hypertrophy exudate or other lesions. NECK: Supple. No adenopathy or masses. No carotid bruits or JVD CHEST: Clear to auscultation. No respiratory distress. No wheezes rales or rhonchi HEART: Regular rate and rhythm. No murmur heard. Normal peripheral pulses. ABDOMEN: Soft, nondistended, normal active bowel sounds. pain noted with palpation to right mid side/ right lower No RUQ pain noted with palpatoin EXTREMITIES: Normal range of motion. No edema. SKIN: Warm, dry, no rash. NEURO: No focal deficits. Alert and oriented x3. PSYCH: Normal mood and affect. Course Vital Signs Vital signs: Vital Signs Temperature 36.8 C 01/12/23 13:25 Pulse Rate 83 01/12/23 13:25 Respiratory Rate 18 01/12/23 13:25 Blood Pressure 139/87 01/12/23 13:25 Pulse Oximetry 98 01/12/23 13:25 Oxygen Delivery Room Air 01/12/23 13:25 Temperature 36.8 C 01/12/23 13:25 Pulse Rate 83 01/12/23 13:25 Respirator
[2023-01-12 16:51] VITALS: BP 119/73; PULSE 71; RESP 15; O2SAT 98
== END 2023-01-12 17:51 | disposition home or self-care (01) ==
PROVIDERS: Emergency Medicine; Emergency Provider Nurse Practitioner Family; PCP Emergency Medicine
DX: R10.9 Unspecified abdominal pain (principal); K59.00 Constipation, unspecified; I10 Essential (primary) hypertension; E66.9 Obesity, unspecified; Z68.41 Body mass index [BMI] 40.0-44.9, adult; K21.9 Gastro-esophageal reflux disease without esophagitis; Z87.891 Personal history of nicotine dependence
CPT/HCPCS: 36415; 74177; 80053; 81001; 85025; 99284; Q9967

== ENCOUNTER 2023-03-21 14:11 | Emergency (ER) | payer BC, SELFPAY ==
[2023-03-21 14:19] VITALS: BP 144/82; PULSE 93; RESP 16; TEMP 37.6; O2SAT 99
--- NOTE | 2023-03-21 14:32 | ED.URI ---
HPI - URI/Sore Throat General Chief Complaint: Upper Respiratory Infection Stated Complaint: sinus infection Time Seen by Provider: 03/21/23 14:32 Source: patient and RN notes reviewed Mode of arrival: ambulatory Limitations: no limitations History of Present Illness HPI Narrative: 32-year-old male presented for complaint of headache, body aches, sinus pressure/congestion, cough, onset last night. States he work with morning with sore throat and hoarse voice. However he endorses some sinus congestion for about 1 week. Denies sob, wheezing, n/v/d. Not taking anything for symptoms. Reports sick contacts with kids. MD elicited complaint: cough Related Data Home Medications Medication Instructions Recorded Confirmed lisinopril 5 mg tablet (Zestril) 10 mg PO DAILY 04/13/20 03/21/23 omeprazole 40 mg capsule,delayed 40 mg PO DAILY 04/13/20 03/21/23 release Allergies Allergy/AdvReac Type Severity Reaction Status Date / Time No Known Allergies Allergy Verified 03/21/23 14:18 Review of Systems Review of Systems: CONSTITUTIONAL: Endorses malaise,denies chills, sweats, fever EYES: Denies visual changes, redness, or discharge ENT: Reports rhinorrhea, congestion, sinus pain, otalgia, sore throat CARDIOVASCULAR: Denies chest pain, palpitations, edema RESPIRATORY: Reports cough, post nasal drainage. Denies dyspnea GASTROINTESTINAL: Denies abdominal pain, nausea, vomiting, diarrhea SKIN: Denies rash or itching MUSCULOSKELETAL: Endorses myalgia NEUROLOGIC: Endorses headache PMFSH Past Medical History Medical History Anxiety History of gastroesophageal reflux (GERD) Hypertension Obesity Surgical History Surgical History History of umbilical hernia repair robotic assisted repair incarcerated umbilical hernia with defect measuring 4 cm on 12/07/22 PDC No history of previous surgery Family History Family History Father Hypertension Diabetes mellitus Mother Hypertension Social History Social History Smoking status: Current every day smoker Tobacco type: e-cigarettes/vaping Second hand tobacco smoke exposure: Yes Smoking end date: 06/15/15 Alcohol intake: current Drinks per week: 6 Substance use: never Substance use type: does not use Living arrangements: with family Additional living arrangements comments: significant other Occupation/Education: occupation Gender identity (if verbalized by the patient): Male Sexual Orientation (if Verbalized by the Patient): Straight or Heterosexual Spiritual care concerns: No Exam Narrative: GENERAL: mildly Ill-appearing, nontoxic no acute distress. EYES: PERRLA, conjunctivae clear ENT: Mucous membranes moist. TMs pearly solitario with dull light reflex bilaterally; no tragal tenderness. Oropharynx erythematous without lesions or exudate, no drooling, no hoarseness, no trismus, uvula midline. No tripod positioning, muffled voice, soft palate or pharyngeal wall bulging NECK: Supple. No lymphadenopathy CHEST: Clear to auscultation, breath sounds equal. No wheezing, rhonchi, rales, or stridor. No respiratory distress, speaks in full sentences. HEART: Regular rate and rhythm. No murmur heard. SKIN: Warm, dry, no rash. NEURO: Alert and oriented x3. PSYCH: Normal mood and affect Course Course Emergency Course: Patient is aware of diagnosis, understands and agrees to treatment plan. Anticipatory guidance given. Patient agrees to follow-up as directed and is aware of reasons to seek care at the emergency department. Portions of this record may have been created with voice recognition software Level of Care: Express Care Visit Vital Signs Vital signs: Vital Signs Temperature 99.6 F 03/21/23 14:19 Pulse Rate
== END 2023-03-21 15:16 | disposition home or self-care (01) ==
PROVIDERS: Emergency Provider Nurse Practitioner Family; PCP Emergency Medicine
DX: J06.9 Acute upper respiratory infection, unspecified (principal); Z20.822 Contact with and (suspected) exposure to COVID-19; K21.9 Gastro-esophageal reflux disease without esophagitis; I10 Essential (primary) hypertension; E66.9 Obesity, unspecified; Z68.41 Body mass index [BMI] 40.0-44.9, adult
CPT/HCPCS: 87426; 99213; C9803; G0463

== ENCOUNTER 2024-03-06 03:47 | Emergency (ER) | payer SELFPAY ==
--- NOTE | ~2024-03-06 | CT_ITS ---
CT of the Abdomen and Pelvis: Indication: Abdominal pain Technique: 2.5 mm axial scans were obtained through the abdomen and pelvis following intravenous adm inistration of 100 cc of Omnipaque 350. Dose reduction technique was used on this scan by utilizing a utomated exposure control and iterative reconstruction technique. The dose-length product (DLP) was 2 089.89 mGy-cm. COMPARISON: 01/12/2023 Findings: Scans through the lung bases are unremarkable. The liver, spleen, pancreas, gallbladder, adrenals and kidneys are within normal limits. No evidence of aortic aneurysm. No lymphadenopathy. No bowel obstruction or bowel wall thickening. There is no evidence to suggest acute appendicitis. Mo derate fat-containing umbilical hernia noted. Images through the pelvis were performed. Urinary bladder unremarkable. No pelvic mass seen. No ascit es. Impression: Moderate fat-containing umbilical hernia. Reviewed, dictated and finalized at [facility]. TELEPHONE TRIAGE Impression: Moderate fat-containing umbilical hernia.
[2024-03-06 04:13] VITALS: BP 115/76; PULSE 87; RESP 17; TEMP 36.9; O2SAT 98
[2024-03-06 04:30] LABS: Basophils Absolute Auto 0.1 K/mm3 (0.0-0.1); Eosinophils Absolute Auto 0.4 K/mm3 (0-0.3); Eosinophils Percent Auto 5.8 % (0-4.4); Hematocrit 42.8 % (42.0-52.0); Hemoglobin 14.6 g/dL (14.0-18.0); Immature Granulocyte Absolute 0.02 K/mm3 (0.00-0.031); Immature Granulocyte Percent A 0.3 % (0-0.5); Lymphocytes Absolute Auto 1.84 K/mm3 (0.9-3.2); Lymphocytes Percent Auto 27.2 % (18.3-44.2); Mean Corpuscular HGB Conc 34.1 g/dl (32-36); Mean Corpuscular Hemoglobin 29.4 pg (26-34); Mean Corpuscular Volume 86.1 fl (80-100); Mean Platelet Volume 10.3 fl (7.4-10.4); Monocytes Absolute Auto 0.6 K/mm3 (0.1-0.6); Monocytes Percent Auto 9.2 % (2.6-8.5); Neutrophils Absolute Auto 3.8 K/mm3 (1.3-6.7); Neutrophils Percent Auto 56.5 % (45.5-73.1); Platelet Count Result 230 k/mm3 (150-375); Red Blood Count 4.97 M/mm3 (4.6-6.20); Red Cell Distribution Width 11.9 % (11.5-14.5); White Blood Count 6.8 K/mm3 (4.5-10.0)
[2024-03-06 04:40] LABS: Alanine Aminotransferase 26 U/L (6-50); Albumin Level 4.3 g/dL (3.5-5.1); Alkaline Phosphatase 72 U/L (38-126); Anion Gap 6 mmol/L (4-12); Aspartate Amino Transferase 21 U/L (17-59); Bilirubin,Total 0.4 mg/dL (0.2-1.3); Blood Urea Nitrogen 14 mg/dL (9-20); Calcium 9.2 mg/dL (8.4-10.2); Carbon Dioxide 29 mmol/L (22-30); Chloride 103 mmol/L (98-107); Estimated CRCL calculation 139 ml/min; Estimated Glomerular Filt Rate > 60; Glucose 104 mg/dL (65-110); Lipase 52 U/L (23-300); Potassium 4.3 mmol/L (3.4-5.0); Sodium 138 mmol/L (137-145)
[2024-03-06 06:14] VITALS: BP 131/71; PULSE 68; RESP 19; O2SAT 98
[2024-03-06 06:21] LABS: Add Urine Microscopic? NO; Appearance Urine Clear (Clear); Bilirubin Urine Negative (Negative); Blood Urine Negative (Negative); Color Urine Yellow (Yellow); Glucose Urine UA Negative (Negative); Ketones Urine Negative (Negative); Leukocyte Esterase Ur Negative LEU/UL (Negative); Nitrate Urine Negative (Negative); Protein Urine Negative (Negative); Specific Grav Ur > 1.045 (1.001-1.035); Urobilinogen Urine 0.2 mg/dL (<2.0)
--- NOTE | 2024-03-06 06:28 | ED_ITS ---
HPI - Abdominal Pain General Chief Complaint: Abdominal Pain Stated Complaint: pain in side woke me up Time Seen by Provider: 03/06/24 03:51 History of Present Illness HPI narrative: Patient is a 33-year-old male who presents to the emergency department this morning complaining left lower quadrant abdominal pain. Patient states that he has been having some pain in that area for the past 3 days but did not think much of it but over night he became uncomfortable and finally decided to come to the emergency department for further evaluation. Patient denies any similar symptoms in the past, any history of kidney stones and denies any urinary symptoms including dysuria or hematuria. Denies any fevers or chills at home, any nausea vomiting or chest pain and/or shortness of breath. No additional symptoms or concerns at this time. Related Data Allergies Allergy/AdvReac Type Severity Reaction Status Date / Time No Known Allergies Allergy Verified 03/06/24 04:17 Review of Systems Review of Systems: All systems are reviewed and are negative unless stated otherwise in the HPI. [facility] Past Medical History Medical History Anxiety Arthritis History of gastroesophageal reflux (GERD) Hypertension Obesity Surgical History Surgical History History of umbilical hernia repair robotic assisted repair incarcerated umbilical hernia with defect measuring 4 cm on 12/07/22 PDC No history of previous surgery Family History Family History Father Hypertension Diabetes mellitus Mother Hypertension Lung cancer Grandparent Hypertension Diabetes mellitus Alcoholism in family member Stomach cancer Grandparent Hypertension Heart problem Social History Social History Social History: Caffeine: Coffee and tea daily 1 cup Smoking status: Current every day smoker Tobacco type: e-cigarettes/vaping Second hand tobacco smoke exposure: Yes Smoking end date: 06/15/15 Alcohol intake: current Alcohol use details: Weekend Drinker Substance use: never Substance use type: does not use Do You Feel Safe in your Home?: Yes Lack of Transportation: No Lack of Food: Never True Current Housing: I Have Housing Concerned About Future Housing: No Difficulty Paying Gas/Electric Bills: No Difficulty Paying for Meds: No Currently Unemployed: No Education: Trade/Vocational Certificate Difficulty w/ Childcare or Family Care: No Living arrangements: with family Additional living arrangements comments: significant other Occupation/Education: occupation Gender identity (if verbalized by the patient): Male Sexual Orientation (if Verbalized by the Patient): Straight or Heterosexual Spiritual care concerns: No Agree to blood products: Yes Exam Narrative: General: Alert, awake, afebrile, in no acute distress. HEENT: PERRL, no rhinorrhea, no post nasal drip, oropharynx clear. Neck: Trachea midline, no JVD, no lymphadenopathy. Cardiovascular: Regular rate and rhythm, no murmurs, rubs or gallops, no peripheral edema. Respiratory: Clear to auscultation bilaterally, no tachypnea, no wheezing, no rhonchi, no rubs, no respiratory distress. Abdomen: Soft, nontender, nondistended, no rebound, no guarding, no peritoneal signs. Musculoskeletal: No joint swelling or deformity, normal muscle tone. Skin: No rashes or petechia, no signs of infection. Psychiatric: Alert and oriented, normal behavior and judgment for situation. Neurological: Alert and oriented to person, place, and time. Follows all commands. No focal deficits, speech is clear and fluent. Course Vital Signs Vital signs: Vital Signs Temperature 98.5 F 03/06/24 04:13 Pulse Rate 87 03/06/24 04:13 Respiratory Rate 17 03/06/24 04:13 Blood Pressure 115/76 03/06/24 04:13 Pulse Oximetry 98 03/06/24 04:13 Oxygen Delivery Room Air 03/06/24 04:13 Temperature 98.5 F 03/06/24 04:13 Pulse Rate 72 03/06/24 06:43 Respiratory Rate 15 03/06/24 06:43 Blood Pressure 122/75 03/06/24 06:43 Pulse Oximetry 96 03/06/24 06:43 Oxygen Delivery Room Air 03/06/24 04:13 MDM - Abdominal Pain MDM Narrative Medical decision making narrative: The patient was evaluated by myself in the emergency department. History is obtained from patient who is an independent historian and physical exam was performed. External medical records were reviewed at this time. IV was established and pertinent tests were ordered. Patient was offered pain medications, however, he states that he does not have any pain at this time and declined any pain medications. Laboratory results obtained revealing no acute process. Urinalysis unremarkable. Imaging studies obtained included CT abdomen and pelvis with IV contrast which was independently interpreted by me revealing a moderate fat containing umbilical hernia no acute process, which is pending final radiology interpre tation. Differential diagnosis considerations include renal colic, diverticulitis, gastroenteritis, musculoskeletal strain. Comorbidities impacting this visit include none. I have evaluated and discussed social determinants of health with the patient that could potentially impact subsequent diagnosis and treatment plans. On repeat assessment of the patient, reevaluation revealed that the patient is doing well and is in no acute distress. Patient symptoms have remained stable since he arrived to our emergency department. Repeat vital signs were all reviewed and noted to be stable. Differential diagnosis and treatment plan were discussed with the patient at bedside. Patient agrees with discussion and after shared medical decision making agrees with discharge. All questions were answ ered to the patient's satisfaction. Patient will follow up with his PCP in 3-5 days. He was provided with a GI referral and instructed to call set up a follow-up appointment. Patient was provided with strict return precautions and instructed to return to the emergency department if any new or worsening symptoms develop. The patient was discharged in stable condition. Lab Data 03/06/24 04:24 03/06/24 04:24 Labs: Lab Results 03/06/24 03/06/24 Range/Units 04:24 06:14 WBC 6.8 (4.5-10.0) K/mm3 RBC 4.97 (4.6-6.20) M/mm3 Hgb 14.6 (14.0-18.0) g/dL Hct 42.8 (42.0-52.0) % MCV 86.1 (80-100) fl MCH 29.4 (26-34) pg MCHC 34.1 (32-36) g/dl RDW 11.9 (11.5-14.5) % Plt Count 230 (150-375) k/mm3 MPV 10.3 (7.4-10.4) fl Immature Gran % (Auto) 0.3 (0-0.5) % Neut % (Auto) 56.5 (45.5-73.1) % Lymph % (Auto) 27.2 (18.3-44.2) % [place] % (Auto) 9.2 H (2.6-8.5) % Eos % (Auto) 5.8 H (0-4.4) % Baso % (Auto) 1.0 (0.2-1.2) % Lymph # (Auto) 1.84 (0.9-3.2) K/mm3 [place] # (Auto) 0.6 (0.1-0.6) K/mm3 Eos # (Auto) 0.4 H (0-0.3) K/mm3 Baso # (Auto) 0.1 (0.0-0.1) K/mm3 Abs Immat Gran (auto) 0.02 (0.00-0.031) K/mm3 Absolute Neuts (auto) 3.8 (1.3-6.7) K/mm3 Absolute Nucleated RBC 0.000 (0.0-0.012) K/mm3 Nucleated RBC % 0.0 (0.0-0.2) % Sodium 138 (137-145) mmol/L Potassium 4.3 (3.4-5.0) mmol/L Chloride 103 (98-107) mmol/L Carbon Dioxide 29 (22-30) mmol/L Anion Gap 6 (4-12) mmol/L BUN 14 (9-20) mg/dL Creatinine 1.00 (0.7-1.3) mg/dL Estim Creat Clear Calc 139 ml/min Estimated GFR > 60 (59 - ) Glucose 104 (65-110) mg/dL Calcium 9.2 (8.4-10.2) mg/dL Total Bilirubin 0.4 (0.2-1.3) mg/dL AST 21 (17-59) U/L ALT 26 (6-50) U/L Alkaline Phosphatase 72 (38-126) U/L Total Protein 8.0 (6.3-8.2) g/dL Albumin 4.3 (3.5-5.1) g/dL Lipase 52 (23-300) U/L Urine Color Yellow (Yellow) Urine Appearance Clear (Clear) Urine pH 6.0 (5.0-9.0) Ur Specific [place] > 1.045 H (1.001-1.035) Urine Protein Negative (Negative) mg/dL Urine Glucose (UA) Negative (Negative) mg/dL Urine Ketones Negative (Negative) mg/dL Ur Blood (Man) Negative (Negative) Urine Nitrate Negative (Negative) Urine Bilirubin Negative (Negative) Urine Urobilinogen 0.2 (<2.0) mg/dL Leukocyte Esterase Rfl Negative (Negative) MICHELLE/UL Imaging Data Radiologist's impression: ITS Impressions Abdomen/Pelvis CT 03/06/24 06:21 Impression: Moderate fat-containing umbilical hernia. Discharge Plan Discharge Clinical Impression: Abdominal pain Patient Disposition: Home, Self-Care Condition: Improved Instructions: Antibiotic Form, Abdominal Pain (ED) Additional Instructions: Please follow-up with your primary care physician within the next 3-5 days. Return to the ED if any new or worsening symptoms develop. You also provided with a GI referral instructed to call to set up a follow-up appointment. Prescriptions: No Action omeprazole 40 mg capsule,delayed release(DR/EC) 40 mg PO DAILY Qty: 90 1RF lisinopril 10 mg tablet 10 mg PO DAILY Qty: 90 1RF Follow-up/Referrals: Dillon Doll MD [Physician] - 1 Week Shreya Lawrence FNP-C [Primary Care Provider] - 3 Days Time of Disposition: 06:33
[2024-03-06 06:43] VITALS: BP 122/75; PULSE 72; RESP 15; O2SAT 96
== END 2024-03-06 06:46 | disposition home or self-care (01) ==
PROVIDERS: Emergency Provider Emergency Medicine; PCP Clinical Nurse Specialist
DX: R10.32 Left lower quadrant pain (principal); I10 Essential (primary) hypertension; E66.9 Obesity, unspecified; Z68.41 Body mass index [BMI] 40.0-44.9, adult; M19.90 Unspecified osteoarthritis, unspecified site; K21.9 Gastro-esophageal reflux disease without esophagitis; Z87.891 Personal history of nicotine dependence; Z79.899 Other long term (current) drug therapy
CPT/HCPCS: 36415; 74177; 80053; 81003; 83690; 85025; 99284; Q9967

== ENCOUNTER 2024-04-19 14:18 | Emergency (ER) | payer SELFPAY ==
[2024-04-19 14:24] VITALS: BP 157/87; PULSE 86; RESP 18; TEMP 37.1; O2SAT 98
--- NOTE | 2024-04-19 14:29 | ED_ITS ---
HPI - Male Genitourinary General Chief complaint: Urogenital-Male Stated complaint: Male Groin Issues Time Seen by Provider: 04/19/24 14:50 Source: patient and RN notes reviewed Mode of arrival: ambulatory Limitations: no limitations History of Present Illness HPI Narrative: 33-year-old male presents with concern for dysuria, interrupted urine stream, low back and abdominal discomfort, pressure between his rectum and his testicles. He denies fever, chills, sweats, nausea, vomiting. He reports he feels achy and tired. Reports he has low appetite. He reports he was seen for the ER for similar instance in February and was sent home. He did have a CT scan that showed an umbilical hernia. He denies testicular pain, will redness, swelling. MD Complaint: dysuria Related Data Allergies Allergy/AdvReac Type Severity Reaction Status Date / Time No Known Allergies Allergy Verified 04/19/24 14:24 Review of Systems Review of Systems: CONSTITUTIONAL: Reports malaise, fatigue. Denies chills, sweats, or fever. CARDIOVASCULAR: Denies chest pain, palpitations, or edema. RESPIRATORY: Denies cough or dyspnea. GASTROINTESTINAL: Reports low abdominal discomfort. Denies abdominal pain, nausea, vomiting, diarrhea GENITOURINARY: Reports dysuria, frequency, decreased urine stream, pressure between his testicles and anus. Denies flank pain or hematuria. SKIN: Denies rash or itching. MUSCULOSKELETAL: Reports low back pain, myalgia. All systems reviewed & are unremarkable except as noted in HPI and below PMFSH Past Medical History Medical History Anxiety Arthritis History of gastroesophageal reflux (GERD) Hypertension Obesity Surgical History Surgical History History of umbilical hernia repair robotic assisted repair incarcerated umbilical hernia with defect measuring 4 cm on 12/07/22 PDC No history of previous surgery Family History Family History Father Hypertension Diabetes mellitus Mother Hypertension Lung cancer Grandparent Hypertension Diabetes mellitus Alcoholism in family member Stomach cancer Grandparent Hypertension Heart problem Social History Social History Social History: Caffeine: Coffee and tea daily 1 cup Smoking status: Current every day smoker Tobacco type: e-cigarettes/vaping Second hand tobacco smoke exposure: Yes Smoking end date: 06/15/15 Alcohol intake: current Alcohol use details: Weekend Drinker Substance use: never Substance use type: does not use Do You Feel Safe in your Home?: Yes Lack of Transportation: No Lack of Food: Never True Current Housing: I Have Housing Concerned About Future Housing: No Difficulty Paying Gas/Electric Bills: No Difficulty Paying for Meds: No Currently Unemployed: No Education: Trade/Vocational Certificate Difficulty w/ Childcare or Family Care: No Living arrangements: with family Additional living arrangements comments: significant other Occupation/Education: occupation Gender identity (if verbalized by the patient): Male Sexual Orientation (if Verbalized by the Patient): Straight or Heterosexual Spiritual care concerns: No Agree to blood products: Yes Comments At time of signature, agree with nursing past medical, surgical, social and family history. There is no relevant family history pertinent to the presenting complaint Exam Narrative: GENERAL: Well-appearing, well-nourished, and in no acute distress. HEAD: Normocephalic. EYES: PERRLA, conjunctivae clear. NECK: Supple. No lymphadenopathy CHEST: Clear to auscultation. No respiratory distress. HEART: Regular rate and rhythm. SKIN: Warm, dry, no rash. NEURO: Alert and oriented x3. PSYCH: Normal mood and affect Course Course Emergency Course: Discussed urinalysis with patient. Discussed are limited diagnostic capability at the [facility] care for patient's symptoms. Offered transfer to the ER for further evaluation. Patient reports he was in the ER February and did not get any answers to this problem and he had current lead does not have insurance so he does not want to go to the emergency room. We discussed presumptively treating for prostate itis which patient is agreeable to, he was given referral to Urology. Anticipatory guidance given. Patient agrees to follow-up as directed and is aware of reasons to seek care at the emergency department. Portions of this record may have been created with voice recognition software Level of Care: Express Care Visit Vital Signs Vital signs: Vital Signs Temperature 98.8 F 04/19/24 14:24 Pulse Rate 86 04/19/24 14:24 Respiratory Rate 18 04/19/24 14:24 Blood Pressure 157/87 H 04/19/24 14:24 Pulse Oximetry 98 04/19/24 14:24 Oxygen Delivery Room Air 04/19/24 14:24 Temperature 98.8 F 04/19/24 14:24 Pulse Rate 86 04/19/24 14:24 Respiratory Rate 18 04/19/24 14:24 Blood Pressure 157/87 H 04/19/24 14:24 Pulse Oximetry 98 04/19/24 14:24 Oxygen Delivery Room Air 04/19/24 14:24 Reviewed. Critical Care Time Critical Care Time Critical Care Time: No Discharge Plan Discharge Clinical Impression: Dysuria Patient Disposition: Acute Care Hospital Condition: Stable Instructions: Prostatitis (ED) Additional Instructions: Your urine did not show evidence of an infection We will treat you presumptively for prostatitis. Take medication as prescribed. If her symptoms worsen or do not improve in next 48 hours you need to go to the emergency. If you have any scrotal swelling, pain you need to go to the emergency room. Please follow-up with urology for further evaluation of your symptoms Patient Language: Armenian Prescriptions: New tamsulosin [Flomax] 0.4 mg capsule 0.4 mg PO DAILY Qty: 5 0RF ciprofloxacin HCl 500 mg tablet 500 mg PO Q12H 7 Days Qty: 14 0RF No Action omeprazole 40 mg capsule,delayed release(DR/EC) 40 mg PO DAILY Qty: 90 1RF lisinopril 10 mg tablet 10 mg PO DAILY Qty: 90 1RF Follow-up/Referrals: Gulshan Mclean MD [Physician] - Shreya Lawrence FNP-C [Primary Care Provider] - Time of Disposition: 15:04
[2024-04-19 15:00] LABS: EDUAAPPEAR Clear; EDUABILI Negative (Negative); EDUABLOOD Negative (Negative); EDUACOLOR1 Yellow; EDUAGLUCOSE Negative (Negative); EDUAKETONE Negative (Negative); EDUALEUKO Negative (Negative); EDUANITRATE Negative (Negative); EDUAPROTEIN 1+ (Negative); EDUAUROBILI 0.2
== END 2024-04-19 15:10 | disposition short-term general hospital (02) ==
PROVIDERS: Emergency Provider Nurse Practitioner; PCP Clinical Nurse Specialist
DX: R30.0 Dysuria (principal); F17.290 Nicotine dependence, other tobacco product, uncomplicated; I10 Essential (primary) hypertension; K21.9 Gastro-esophageal reflux disease without esophagitis; M19.90 Unspecified osteoarthritis, unspecified site; E66.9 Obesity, unspecified; Z68.41 Body mass index [BMI] 40.0-44.9, adult
CPT/HCPCS: 81003; 99213; G0463

== ENCOUNTER 2024-06-15 19:52 | Emergency (ER) | payer SELFPAY ==
--- NOTE | 2024-06-15 19:55 | ED.URI ---
HPI - URI/Sore Throat General Chief Complaint: Upper Respiratory Infection Stated Complaint: Sinus Time Seen by Provider: 06/15/24 19:55 Source: patient, RN notes reviewed and old records reviewed Mode of arrival: ambulatory Limitations: no limitations History of Present Illness HPI Narrative: Flu like symptoms for 8 days. Took Neda-Trimble today With minimal relief. Last dose this morning, has not taken any other medications for his symptoms. He is not in any obvious distress Related Data Allergies Allergy/AdvReac Type Severity Reaction Status Date / Time No Known Allergies Allergy Verified 06/15/24 20:23 Review of Systems Review of Systems: All systems reviewed & are unremarkable except as noted in HPI and below Constitutional: Constitutional: Reports no additional constitutional complaints, Reports headache(s) and Reports lethargy ENT: Reports system reviewed and no additional complaints, except as documented, Reports nasal congestion, Reports nasal discharge, Reports sinus pain, Reports sinus pressure and Reports sore throat Cardiovascular: Cardiovascular: Reports no additional cardiovascular complaints Respiratory: Respiratory: Reports no additional respiratory complaints and Reports cough Gastrointestinal: Gastrointestinal: Reports no additional gastrointestinal complaints PMFSH Past Medical History Medical History Arthritis Obesity Hypertension History of gastroesophageal reflux (GERD) Anxiety Surgical History Surgical History History of umbilical hernia repair robotic assisted repair incarcerated umbilical hernia with defect measuring 4 cm on 12/07/22 PDC No history of previous surgery Family History Family History Father Hypertension Diabetes mellitus Mother Hypertension Lung cancer Grandparent Hypertension Diabetes mellitus Alcoholism in family member Stomach cancer Grandparent Hypertension Heart problem Social History Social History Social History: Caffeine: Coffee and tea daily 1 cup Smoking status: Current every day smoker Tobacco type: e-cigarettes/vaping Second hand tobacco smoke exposure: Yes Smoking end date: 06/15/15 Alcohol intake: current Alcohol use details: Weekend Drinker Substance use: never Substance use type: does not use Do You Feel Safe in your Home?: Yes Lack of Transportation: No Lack of Food: Never True Current Housing: I Have Housing Concerned About Future Housing: No Difficulty Paying Gas/Electric Bills: No Difficulty Paying for Meds: No Currently Unemployed: No Education: Trade/Vocational Certificate Difficulty w/ Childcare or Family Care: No Living arrangements: with family Additional living arrangements comments: significant other Occupation/Education: occupation Gender identity (if verbalized by the patient): Male Sexual Orientation (if Verbalized by the Patient): Straight or Heterosexual Spiritual care concerns: No Agree to blood products: Yes Comments At the time of my signature, I reviewed and agree with the nursing past medical, surgical, social, and family history. There is no relevant family history pertinent to the patient complaint. Exam Const: General: cooperative, no acute distress, alert and awake Orientation/consciousness: oriented to person, oriented to place and oriented to time HENMT: Head: normal to inspection Ears: TM abnormal with fluid behind the TM bilateral Face/Nose/Sinus: sinus tenderness Mouth: Yes moist mucous membranes Throat: posterior oropharynx abnormal erythema and postnasal drainage Resp: Effort & Inspection: normal respiratory effort and able to speak in complete sentences Auscultation: clear to auscultation bilaterally, no crackles, no rales, no rhonchi and no wheezes Cardio: Palpation: normal PMI Rate: regular rate Rhythm: regular rhythm Heart sounds: S1 normal heart sound present and S2 normal heart sound present Neuro: General: oriented to person, oriented to place and oriented to time Cranial nerves: Yes CN's II-XII intact bilaterally Psych: Appearance: grossly normal Thought process: Normal thought process present Insight: Good insight present (Psych) Judgement: Good judgement present (Psych) Course Course Level of Care: Express Care Visit Vital Signs Vital signs: Vital Signs Temperature 99.6 F 06/15/24 20:02 Pulse Rate 113 H 06/15/24 20:02 Respiratory Rate 18 06/15/24 20:02 Blood Pressure 136/70 06/15/24 20:02 Pulse Oximetry 98 06/15/24 20:02 Oxygen Delivery Room Air 06/15/24 20:02 Temperature 99.6 F 06/15/24 20:02 Pulse Rate 113 H 06/15/24 20:02 Respiratory Rate 18 06/15/24 20:02 Blood Pressure 136/70 06/15/24 20:02 Pulse Oximetry 98 06/15/24 20:02 Oxygen Delivery Room Air 06/15/24 20:02 Reviewed MDM - URI/Sore Throat MDM Narrative Medical decision making narrative: history and exam consistent with sinusitis. Patient nontoxic appearing, stable for discharge home on p.o. antibiotic therapy. He declines to have his medications sent to a pharmacy that he could pick them up from [facility]. He is aware that he will not be able to get his medication until the morning at his pharmacy of choice. Discharge instructions reviewed with patient, as well as provided in writing per nursing staff. The instructions also include specific and strict return/GO TO THE ER as well as f/u information. All questions have been answered, and the patient deny any further questions with discharge and discharge plan. Some parts of this dictation were generated by voice recognition software and may contain typographical and/or grammatical inaccuracies. Differential Diagnosis Differential diagnosis: Likely upper respiratory infection, otitis media, sinusitis, viral infection and influenza Medical Records Attestation: I reviewed the patient's medical records. Lab Data Attestation: I reviewed the patient's lab results. Discharge Plan Discharge Clinical Impression: Sinusitis Patient Disposition: Home, Self-Care Condition: Stable Instructions: Antibiotic Form, Sinusitis (ED) Patient Language: Rw[place] Prescriptions: New doxycycline hyclate 100 mg tablet 100 mg PO BID Qty: 20 0RF No Action tamsulosin [Flomax] 0.4 mg capsule 0.4 mg PO DAILY Qty: 5 0RF lisinopril 10 mg tablet 10 mg PO DAILY Qty: 90 0RF omeprazole 40 mg capsule,delayed release(DR/EC) 40 mg PO DAILY Qty: 90 0RF Follow-up/Referrals: Shreya Lawrence, DIGESTER COOK-C [Primary Care Provider] - 2 Weeks Stand Alone Forms: Work/School Release IP Time of Disposition: 20:20
[2024-06-15 20:02] VITALS: BP 136/70; PULSE 113; RESP 18; TEMP 37.6; O2SAT 98
== END 2024-06-15 20:25 | disposition home or self-care (01) ==
PROVIDERS: Emergency Provider Nurse Practitioner Family; PCP Clinical Nurse Specialist
DX: J32.9 Chronic sinusitis, unspecified (principal); F17.290 Nicotine dependence, other tobacco product, uncomplicated; I10 Essential (primary) hypertension; K21.9 Gastro-esophageal reflux disease without esophagitis; M19.90 Unspecified osteoarthritis, unspecified site; E66.9 Obesity, unspecified; Z68.41 Body mass index [BMI] 40.0-44.9, adult
CPT/HCPCS: 99213; G0463

== ENCOUNTER 2024-06-19 17:43 | Emergency (ER) | payer SELFPAY ==
[2024-06-19 17:58] VITALS: BP 129/70; PULSE 87; RESP 20; TEMP 36.7; O2SAT 97
--- NOTE | 2024-06-19 18:00 | ED.GENADULT ---
HPI - General Adult General Chief complaint: Skin/Abscess/Foreign Body Stated complaint: sores in mouth on lips/right side Time Seen by Provider: 06/19/24 18:09 Source: patient, RN notes reviewed and old records reviewed Mode of arrival: ambulatory Limitations: no limitations History of Present Illness HPI narrative: 33 year old male presents to express care with complaints of noting blister on his right lower lip on Sunday and now also on right upper lip and inside of right lower lip. Patient reports that he was seen in the express car.e on Sunday and was diagnosed with sinus infection and RX of Doxycycline received which he picked up on Sunday and started, On he noticed the blister on his right lower lip wit now also on upper right lip and inside right lower lip. Patient wonders if it is an allergic reaction to the doxycycline and did not take any of the medication today. He reports continued sinus congestion with drainage and some sinus pressure and frontal headache, denies any fevers or any difficulty swallowing or with his breathing. MD complaint: blisters on right lower upper and inside right lower lip Onset (ago): day(s) (2) Location: mouth (right upper and lower lip and inside right lower lip) Severity: mild Treatments prior to arrival: none Related Data Allergies Allergy/AdvReac Type Severity Reaction Status Date / Time doxycycline Allergy Intermediate Blister Verified 06/19/24 18:22 Review of Systems Review of Systems: CONSTITUTIONAL: Denies malaise, chills, sweats, or fever. EYES: Denies visual changes, redness, or discharge. ENT: Reports rhinorrhea, congestion, sinus pain, no otalgia and no sore throat. CARDIOVASCULAR: Denies chest pain, palpitations, or edema. RESPIRATORY: Reports cough.? Denies dyspnea. GASTROINTESTINAL: Denies abdominal pain, nausea, vomiting, diarrhea SKIN: Denies rash or itching. Reports blister to right lower lip MUSCULOSKELETAL: Denies myalgia. NEUROLOGIC: Reports frontal headache. All systems reviewed & are unremarkable except as noted in HPI and below PMFSH Past Medical History Medical History MARLEY (obstructive sleep apnea) Chronic sinusitis Arthritis Obesity Hypertension History of gastroesophageal reflux (GERD) Anxiety Surgical History Surgical History History of umbilical hernia repair robotic assisted repair incarcerated umbilical hernia with defect measuring 4 cm on 12/07/22 PDC No history of previous surgery Family History Family History Father Hypertension Diabetes mellitus Mother Hypertension Lung cancer Grandparent Hypertension Diabetes mellitus Alcoholism in family member Stomach cancer Grandparent Hypertension Heart problem Social History Social History Social History: Caffeine: Coffee and tea daily 1 cup Smoking status: Current every day smoker Tobacco type: e-cigarettes/vaping Second hand tobacco smoke exposure: Yes Smoking end date: 06/15/15 Alcohol intake: current Alcohol use details: Weekend Drinker Substance use: never Substance use type: does not use Do You Feel Safe in your Home?: Yes Lack of Transportation: No Lack of Food: Never True Current Housing: I Have Housing Concerned About Future Housing: No Difficulty Paying Gas/Electric Bills: No Difficulty Paying for Meds: No Currently Unemployed: No Education: Trade/Vocational Certificate Difficulty w/ Childcare or Family Care: No Living arrangements: with family Additional living arrangements comments: significant other Occupation/Education: occupation Gender identity (if verbalized by the patient): Male Sexual Orientation (if Verbalized by the Patient): Straight or Heterosexual Spiritual care concerns: No Agree to blood products: Yes Comments At time of signature, agree with nursing past medical, surgical, social and family history. There is no relevant family history pertinent to the presenting complaint Exam Narrative: GENERAL: Well-appearing, well-nourished,obese, and in no acute distress. HEAD: Normocephalic EYES: PERRLA, conjunctivae clear ENT: Nares clear, turbinates edematous and erythematous, clear discharge, sinus prossure and frontal headache discomfort.. Mucous membranes moist. TM pearly solitario with dull light reflex bilaterally; no tragal tenderness. Oropharynx erythematous without lesions. Tonsils not enlarged and without exudate, no drooling, no hoarseness, no trismus, uvula midline.blister type of lesions to right lower and upper lip and inside right lower lip, post nasal drainage noted NECK: Supple. No lymphadenopathy CHEST: Clear to auscultation, breath sounds equal. No wheezing, rhonchi, rales, or stridor. No respiratory distress, speaks in full sentences.occasional cough noted SAO2 97% on room air HEART: Regular rate and rhythm. No murmur heard. SKIN: Warm, dry, no rash. NEURO: Alert and oriented x3. PSYCH: Normal mood and affect Course Course Emergency Course: Patient is aware of diagnosis, understands and agrees to treatment plan.? Anticipatory guidance given.? Patient agrees to follow-up as directed and is aware of reasons to seek care at the emergency department. Portions of this record may have been created with voice recognition software Level of Care: Express Care Visit Vital Signs Vital signs: Vital Signs Temperature 36.7 C 06/19/24 17:58 Pulse Rate 87 06/19/24 17:58 Respiratory Rate 20 06/19/24 17:58 Blood Pressure 129/70 06/19/24 17:58 Pulse Oximetry 97 06/19/24 17:58 Oxygen Delivery Room Air 06/19/24 17:58 Temperature 36.7 C 06/19/24 17:58 Pulse Rate 87 06/19/24 17:58 Respiratory Rate 20 06/19/24 17:58 Blood Pressure 129/70 06/19/24 17:58 Pulse Oximetry 97 06/19/24 17:58 Oxygen Delivery Room Air 06/19/24 17:58 Reviewed Medical Decision Making Differential Diagnosis Differential Diagnosis: blisters to right upper and lower lips, allergic reaction to doxycycline, sinusitis, URI,, viral infection, Medical Records Medical records reviewed: Yes I reviewed the external patient's medical records. Vital Signs Vital Signs: Vital Signs Temperature 36.7 C 06/19/24 17:58 Pulse Rate 87 06/19/24 17:58 Respiratory Rate 20 06/19/24 17:58 Blood Pressure 129/70 06/19/24 17:58 Pulse Oximetry 97 06/19/24 17:58 Oxygen Delivery Room Air 06/19/24 17:58 Temperature 36.7 C 06/19/24 17:58 Pulse Rate 87 06/19/24 17:58 Respiratory Rate 20 06/19/24 17:58 Blood Pressure 129/70 06/19/24 17:58 Pulse Oximetry 97 06/19/24 17:58 Oxygen Delivery Room Air 06/19/24 17:58 reviewed Critical Care Time Critical Care Time Critical Care Time: No Discharge Plan Discharge Clinical Impression: Blister of lip Sinusitis Qualifiers: Sinusitis location: pansinusitis Chronicity: acute Recurrence: not specified as recurrent Qualified Code(s): J01.40 - Acute pansinusitis, unspecified Patient Disposition: Home, Self-Care Condition: Stable Instructions: Antibiotic Form, Sinusitis (ED) Additional Instructions: Increase fluids especially juices and water [id number] cough and cold medicine of your choice for your symptoms Carmex for Blistex to lips Tylenol or ibuprofen for any fever pain Steroids as directed--take with food heat to the face 20-30 minutes 4-6 times a day for pain Salt water gargles, throat lozenges or throat sprays as desired Antibiotic as directed--finished the medication Discontinue the doxycycline If your symptoms persist, change or worsen significantly before you can contact your personal physician then please, without delay, go to the emergency department for further evaluation. Follow-up with PCP in 7-10 days or sooner if needed Follow up with PCP soon in regards to your blood pressure which is elevated above threshold for referral. Blood pressure above 120/80 may indicate pre-hypertension. . Patient Language: Mosotho Prescriptions: New amoxicillin-pot clavulanate 875-125 mg tablet 1 tablet PO Q12H Qty: 20 0RF prednisone 20 mg tablet 20 mg PO BID 5 Days Qty: 10 0RF No Action lisinopril 10 mg tablet 10 mg PO DAILY Qty: 90 0RF omeprazole 40 mg capsule,delayed release(DR/EC) 40 mg PO DAILY Qty: 90 0RF Follow-up/Referrals: Shreya Lawrence, WIRE WINDER-C [Primary Care Provider] - Stand Alone Forms: Work/School Release IP Time of Disposition: 18:24 Quality [place] Coma Scale Eyes: Open Verbal: Oriented and Alert Motor: Follows Commands [place] Coma Total Score: 15
== END 2024-06-19 18:30 | disposition home or self-care (01) ==
PROVIDERS: Emergency Provider Registered Nurse; PCP Clinical Nurse Specialist
DX: S00.521A Blister (nonthermal) of lip, initial encounter (principal); X58.XXXA Exposure to other specified factors, initial encounter; J01.40 Acute pansinusitis, unspecified; M19.90 Unspecified osteoarthritis, unspecified site; I10 Essential (primary) hypertension; K21.9 Gastro-esophageal reflux disease without esophagitis
CPT/HCPCS: 99213; G0463

== ENCOUNTER 2024-09-10 09:06 | Emergency (ER) | payer OTHER, SELFPAY ==
--- NOTE | ~2024-09-10 | XR_ITS ---
EXAMINATION:[id number] DATE: 09/10/2024 10:37 INDICATION: Right-sided neck pain and difficulty moving the neck. TECHNIQUE: AP, lateral, lateral swimmers and odontoid views of the cervical spine are provided. COMPARISON: None FINDINGS: Slight reversal of the normal cervical lordosis. 27 degree cervical dextroscoliosis. Odontoid is inta ct. Normal atlantoaxial interval. Vertebral body and disc heights are normal. 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 Prevertebral soft tissues are normal. IMPRESSION: 1. Possible torticollis with 27 degrees cervical dextroscoliosis with slight reversal of the normal c ervical lordosis. Reviewed, dictated and finalized at location A. IMPRESSION: 1. Possible torticollis with 27 degrees cervical dextroscoliosis with slight re versal of the normal cervical lordosis.
--- OUTSIDE RECORDS SUMMARY | 2024-09-10 09:11 | XMS_ITS | Clinical Summary ---
Author Organization [facility] Office Center Address [address] [place] [address] Care Team Providers Care Manager College Name Role Phone Sunil Russell MD Primary Care Provider [phone] Allergies No known active allergies Medications PARoxetine (PAXIL) 10 mg tablet 05/23/2022 Active omeprazole (PriLOSEC) 40 mg capsule Take 40 mg by mouth 05/21/2022 Active lisinopriL (PRINIVIL,ZESTR [place]) 10 mg tablet Take 10 mg by mouth daily 05/22/2022 Active famotidine (PEPCID) 40 mg tablet Take 40 mg by mouth nightly 05/21/2022 Active Active Problems Problem Noted Date Diagnosed Date BMI 40.0-44.9, adult 09/27/2022 Obstructive sleep apnea 08/02/2022 Hypersomnia 05/31/2022 Psychophysiological insomnia 05/31/2022 Shift work sleep disorder 05/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 BMI 39.0-39.9,adult 05/31/2022 Family history of sleep apnea 05/31/2022 Restless legs 05/31/2022 Shortness of breath 05/31/2022 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 Arm pain, left 06/05/2019 Anxiety 01/07/2018 Snoring 01/07/2018 Obesity 01/07/2018 Hyperlipidemia 01/07/2018 Gastroesophageal reflux disease 01/07/2018 Chest pain 01/07/2018 Benign hypertension 01/07/2018 Transitional cell carcinoma of urethra 6 Social History Tobacco Use Types Packs/Day Years Used Date Smoking Tobacco: Never Tobacco Cessation:Counseling Given: Not Answered Personal Safety Answer Date Recorded Getting School Help Needed Not on file 05/19 Sex and Gender Information Value Date Recorded Sex Assigned at Not on file 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 Gender Identity Not on file Sexual Orientation Not on file Obstetrics History Last Filed Vital Signs Vital Sign Reading Time Taken Comments Blood Pressure 140/60 09/27/2022 2:10 PM CDT Pulse 99 09/27/2022 2:10 PM CDT Temperature 36.4 C (97.6 F) 09/27/2022 2:10 PM CDT Respiratory Rate 18 09/27/2022 2:10 PM CDT Oxygen Saturation 97% 09/27/2022 2:10 PM CDT Inhaled Oxygen Concentration - - Weight 142 kg (313 lb) 09/27/2022 2:10 PM CDT Height 185.4 cm (6' 1) 09/27/2022 2:10 PM CDT Body Mass Index 41.3 09/27/2022 2:10 PM CDT Plan of Treatment Health Maintenance Due Date Last Done Comments Depression Screening 1989 Hepatitis C Screening 1989 Varicella Vaccines (1 of 2 - 13+ 2-dose series) 2002 Hepatitis B Screening 09/23/2007 Regular Well Visit/Exam 18-64 09/23/2007 Influenza Vaccine (Season Ended) 2024 02/04/2016, 01/07/2016 DTaP/Tdap/Td Vaccine (3 - Td or Tdap) 01/18/2030 01/19/2020, 07/18/1994 HPV Vaccines Aged Out No longer eligi ble based on patient's age to complete this topic Pneumococcal vaccine <65 Aged Out No longer eligible based on patient's age to complete this topic Insurance [employer] BLUE ACCESS OOS [employer] ACCESS OOS AET BETTER [facility] AETNA BETTER [facility] [place] BLUE ACCESS OOS Care Teams Manager College Relationship Specialty Start Date End Date Sunil Russell MD [address] [facility] [address] [facility] [address] [place] [address] PCP - General Hematology 08/21/22
--- OUTSIDE RECORDS SUMMARY | 2024-09-10 09:11 | XMS_ITS | Referral Summary ---
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 Gender Identity Not on file Sexual Orientation Not on file Last Filed Vital Signs Vital Sign Reading [...] 09/27/2022 2:10 PM CDT Plan of Treatment Not on file Insurance [facility] O BLUE ACCESS OOS AETNA BETTER [facility] Member Subscriber Plan / Payer (Ef fective 2023-Present) Name:Wilbur Redding Relation to Subscriber:Self Name:Wilbur Redding Payer ID:[id number] (NAIC) Type:BC ALLIANCE Address: [facility] [id number] [place] [id number] Care Teams Mate Fishing Vessel Relationship Specialty Start Date End Date Sunil Russell MD [address] [facility] [address] [id number] PCP - General Hematology 08/21/22
--- OUTSIDE RECORDS SUMMARY | 2024-09-10 09:11 | XMS_ITS | CONTINUITY OF CARE DOCUMENT ---
Author Name nida jacobyaxel Address Unknown Organization [facility] Address [address] [facility] [address] [place] [address] Phone [phone] Care Team Providers Care Conveyor Installer Name Role Phone Abdon Corbett MD Unavailable BREE MOREAU MD Unavailable [phone] BREE MOREAU MD Unavailable [phone] PROBLEMS Condition Status Date Provider Notes Family History Coronary Hear t Disease male < 55: active ? Dg Plurad Chest pain-type to be determined active Gwendolyn x Plurad Hyperlipidemia active Dg Plurad Arm pain, left active Abdon Corbett MD Snoring active Dg Plurad Obesity active Dg Plurad HTN essential active Abdon Corbett MD Anxiety active Dg Plurad GERD active Dg Plurad Family History of Hypertension: active ? Dg Plurad Family History of Hypertension: active ? Dg Plurad ENCOUNTERS Date Type Provider Location Encounter Diag nosis - In-person encounter Office Visit Abdon Corbett MD [facility] - In-person encounter Office Visit Abdon Corbett MD [facility] Arm pain, left - In-person encounter Office Visit Abdon Corbett MD [facility] - In-person encounter Office Visit Abdon Corbett MD [facility] HTN essential - In-person encounter Office Visit Abdon Corbett MD [facility] Family History of Hypertension:Family History of Hypertension:Family History Coronary Heart Disease male < 55:Chest pain-type to be determinedGERDAnxietyHTN essentialObesityHyperlipidemiaSnoring VITAL SIGNS Date Observation Value Provider Body Mass Index (Ratio) 38.13 kg/m2 Shayna Corbett MD blood pressure, diastolic -1 mm[Hg] Li nkLogic blood pressure, systolic 144 mm[Hg] Alyson kLogic blood pressure, diastolic 88 mm[Hg] Sa ra Moody blood pressure, systolic 144 mm[Hg] [place] a Moody respiratory rate E&M 22 /min Alethea Si ms oxygen saturation, oximetry 100 % Alethea Moody pulse rate 103 /min Alethea Moody blood pressure, cuff size regular Sa ra Moody weight E&M 297 [lb_av] Alethea Moody height E&M 74 [in_i] Alethea Moody Body Mass Index (Ratio) 31.97 kg/m2 Shayna Corbett MD blood pressure, resting No Tons palacio Trivedi oxygen saturation, oximetry 98 % Tonsha Trivedi respiratory rate E&M 18 /min Tonsha Trivedi pulse rate 93 /min Tonsha Trivedi weight E&M 249 [lb_av] Tonsha Trivedi height E&M 74 [in_i] Tonsha Trivedi Body Mass Index (Ratio) 32.86 kg/m2 Shayna Corbett MD blood pressure, cuff size regular Cy bentley Begum blood pressure, diastolic 80 mm[Hg] Broderick Begum blood pressure, systolic 130 mm[Hg] Sunshine Begum oxygen saturation, oximetry 98 % Shanda Begum respiratory rate E&M 16 /min Shanda Begum pulse rate 73 /min Shanda evans weight E&M 256 [lb_av] Shanda evans height E&M 74 [in_i] Shanda evans Body Mass Index (Ratio) 33.89 kg/m2 Shayna Corbett MD blood pressure, cuff size regular Cy bentley Begum blood pressure, diastolic 70 mm[Hg] Cy bentley Begum blood pressure, systolic 124 mm[Hg] Sunshine Begum oxygen saturation, oximetry 98 % Shanda Begum respiratory rate E&M 16 /min Shanda Begum pulse rate 74 /min Shanda evans weight E&M 264 [lb_av] Shanda evans height E&M 74 [in_i] Shanda evans Body Mass Index (Ratio) 34.92 kg/m2 Dg Plurad blood pressure, diastolic 100 mm[Hg] Da mykel Segundo blood pressure, systolic 144 mm[Hg] Dac ia Segundo oxygen saturation, oximetry 95 % Brenda [place] respiratory rate E&M 16 /min Brenda V oss pulse rate 81 /min Brenda Segundo weight E&M 272 [lb_av] Brenda Segundo height E&M 74 [in_i] Brenda Segundo ALLERGIES No Known Drug Allergies HISTORY OF MEDICATION USE Medication Status Instructions Dates Provider Indications Com ments lisinopril 10 mg tablet active Abdon Corbett MD ergocalciferol (vitamin D2) 1,250 mcg (50,000 unit) capsule completed Take 1 capsule by mouth once a week - Abdon Corbett MD #8, 55 days supply, Prescribed by BREE MOREAU, Filled 06/03/2019 CARAFATE 1 GM ORAL TABLET completed Take 1 tablet three times daily before meals - Shanda Begum LISINOPRIL 5 MG ORAL TABLET completed Take 1 tablet once a day - Shanda Begum omeprazole 40 mg capsule,delayed release(DR/EC) active Take 2 tablet by mouth once a day Abdon Corbett MD SOCIAL HISTORY Date Observation Value Provider social history E&M Patient nicole gonzalez smokes every day, electronic cigarettes. Smoking History: Kamille vela is a former smoker. Abdon Corbett MD number of years as a smoker 15 a Abdon Corbett MD smoking history, tot al pack/day e cig Abdon Corbett MD cigarette use yes Abdon Dodd smoking status Former smoker Abdon Corbett MD social history reviewed E&M revi ewed - no changes required Abdon Corbett MD social history E&M Patient nicole gonzalez smokes every day, electronic cigarettes. Smoking History: Kamille vela is a former smoker. Abdon Corbett MD social history reviewed E&M revi ewed - no changes required Abdon Corbett MD number of years as a smoker 15 a Gary Trivedi smoking history, tot al pack/day e cig Gary Trivedi cigarette use yes Gary Trivedi smoking status Former smoker Gary Trivedi drug use no Abdon Corbett MD alcohol use, average drinks per day social Abdon Corbett MD alcohol use yes Abdon Corbett MD social history E&M Patient nicole gonzalez smokes every day, electronic cigarettes. Smoking History: Kamlile vela is a former smoker. Abdon Corbett MD social history reviewed E&M revi ewed - no changes required Abdon Corbett MD number of years as a smoker 15 a Shanda Begum smoking history, tot al pack/day e cig Shanda Begum cigarette use yes Shanda mariano smoking status Former smoker Shanda Cody chung social history E&M Patient nicole gonzalez smokes every day, electronic cigarettes. Smoking History: Kamille vela is a former smoker. Abdon Corbett MD social history reviewed E&M revi ewed - no changes required Abdon Corbett MD alcohol use, average drinks per day social Shanda Begum alcohol use yes Shanda evans number of years as a smoker 15 a Shanda Begum smoking history, tot al pack/day e cig Shanda Begum cigarette use yes Shanda mariano smoking status Former smoker Shanda Cody chung number of grandchildren Abdon Corbett MD U doug Corbett MD alcohol use, average drinks per day social Abdon Corbett MD alcohol use yes Abdon Corbett MD cigarette use yes Abdon Dodd smoking status Current every day smoker Kumar Corbett MD social history E&M S moking History: Kamille vela currently smokes every day, electronic cigarettes. Kamille vela has been counseled to quit. Abdon Corbett MD social history reviewed E&M revi ewed - no changes required Abdon Corbett MD smoking/tobacco cess ation, patient education and counseling yes Abdon Corbett MD number of years as a smoker 15 a Brenda Segundo smoking history, tot al pack/day e cig Brenda Segundo FAMILY HISTORY Family Member Condition Maternal Grandfather Family History of D iabetes: Maternal Grandfather Family History of D iabetes: Maternal Grandfather Family History Leandra nary Heart Disease male < 55: Maternal Grandfather Family History of D iabetes: Father Family History of Hy pertension: Father Family History of Di abetes: Mother Family History of Hy pertension: INSURANCE PROVIDERS Payer name Policy type / Coverage type Elisha red constitution party ID AETNA [facility] Medicaid [id number] ADVANCE DIRECTIVES Name Date DISCUSSED - NO DECISION MADE TREATMENT PLAN Date Name Performer [id number],C, P T advise to lose weight and exercise. Abdon Corbett MD [id number],C,T akes Omeprazole daily. His updated medication list for this problem includes: Omeprazole 40 Mg Capsule,delayed Release(dr/ec) (Omeprazole) ..... Take 2 tablet by mouth once a day Abdon Corbett MD [id number],S, B ounding L radial pulse. Abdon Corbett MD [id number],S, B P today: 144/88 P rior BP: 130/80 (01/27/2019) Abdon Corbett MD Cardiology: P T advise to lose weight and exercise. Abdon Corbett MD Cardiology:Takes Ome prazole daily. His updated medication list for this problem includes: Omeprazole 40 Mg Capsule,delayed Release(dr/ec) (Omeprazole) ..... Take 2 tablet by mouth once a day Abdon Corbett MD Cardiology: B ounding L radial pulse. Abdon Corbett MD Cardiology: B P today: 144/88 P rior BP: 130/80 (01/27/2019) Abdon Corbett MD Cardiology Abdon Corbett MD Cardiology:BP today: 144/92 P rior BP: 130/80 (01/27/2019) Abdon Corbett MD Cardiology:Negative nuclear stre ss test 02/11/19. Abdon Corbett MD Cardiology:Bounding L radial pulse. Had arterial doppler of the UE done per PCP, which was normal. Abdon Corbett MD Cardiology follow up Abdon gonzales MD Cardiology follow up : B P today: 130/80 P rior BP: 124/70 (09/12/2018) Abdon Corbett MD Cardiology follow up :I have reviewed the options of a repeat stress test or cardiac cath with him. I have discussed the risk of cardiac catheterization with him. At this time, we will just repeat his stress test. Abdon Corbett MD Cardiology follow up :has lost about 10 lbs since last seen. Abdon Corbett MD Cardiology follow up :historical ly. will check lipid panel Abdon Corbett MD Cardiology follow up :Continue lisinopril 5mg daily. BP today: 124/70 P rior BP: 144/100 (01/07/2018) Will check BMP Abdon Corbett MD Cardiology New Patie nt:Would recommend a stress nuclear and an echo. O rders: S TR - Nuclear (CPT-29136) C omplete Echo (CPT-81193) Abdon Corbett MD Date Name Complete Echo Stress Routine Holter Monitor 24 Hr Stress Exercise Card iolite BASIC METABOLIC PANE L W/EGFR LIPID PANEL Complete Echo STR - Nuclear HISTORY OF PROCEDURES Procedure Date Procedure Name Provider Procedure Notes S tatus EKG Abdon Corbett MD completed EKG Abdon Corbett MD completed Cardiolite, 2 units Abdon Corbett MD completed SPECT Images Yenny Villalba MD complet ed Stress EKG Ankush Arreola MD complete d EKG Abdon Corbett MD completed
--- OUTSIDE RECORDS SUMMARY | 2024-09-10 09:11 | XMS_ITS | Clinical Summary ---
Author Organization [facility] Address [address] [place] [address] Phone Care Team Providers Care Tow Motor Operator Name Role Phone Francesco Pedraza MD Primary Care Provider Allergies No known active allergies Medications omeprazole (PriLOSEC) 40 MG CAPSULE DELAYED RELEASE Take by mouth. 01/07/2018 Active lisinopril (PRINIVIL, ZESTRIL) 10 MG Tablet Take 10 mg by mouth daily. 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 Family History Medical History Relation Name Comments Diabetes Father Lung Cancer Maternal Aunt Diabetes Maternal Grandfather Lung Cancer Mother Diabetes Paternal Uncle Relation Name Status Comments Father Alive Maternal Aunt Maternal Grandfather Mother Alive Paternal Uncle Sister Social History Tobacco Use Types Packs/Day Years Used Date Smoking Tobacco: Never Smokeless Tobacco: Never Tobacco Cessation:Counseling Given: Not Answered Alcohol Use Standard Drinks/Week Comments Yes 0 (1 standard drink = 0.6 oz pur e alcohol) once a week Sex and Gender Information Value Date Recorded Sex Assigned at Not on file Legal Sex 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 Gender Identity Not on file Sexual Orientation Not on file Last Filed Vital Signs Vital Sign Reading Time Taken Comments Blood Pressure 140/80 03/20/2022 10:27 AM WARRANTY ADMINISTRATOR Pulse 91 03/20/2022 10:27 AM WARRANTY ADMINISTRATOR Temperature 36.7 C (98 F) 03/20/2022 10:27 AM WARRANTY ADMINISTRATOR Respiratory Rate 20 03/20/2022 10:27 AM WARRANTY ADMINISTRATOR Oxygen Saturation 96% 03/20/2022 10:27 AM WARRANTY ADMINISTRATOR Inhaled Oxygen Concentration - - Weight 137 kg (302 lb) 03/20/2022 10:27 AM WARRANTY ADMINISTRATOR Height 185.4 cm (6' 1) 03/20/2022 10:27 AM WARRANTY ADMINISTRATOR Body Mass Index 39.84 03/20/2022 10:27 AM WARRANTY ADMINISTRATOR Plan of Treatment Health Maintenance Due Date Last Done Comments Hepatitis C Virus (HCV) Screening 1989 Hepatitis B Immunization (1 of 3 - 19+ 3-dose series) 2008 Influenza Immunization (#1) 2023 SARS-COV-2 Immunization ( season) 2023 Respiratory Syncytial Virus (RSV) Immunization (Adult) (1 - 1-dose 75+ series) 2064 DTaP/Tdap/Td Immunization Discontinued 2019, 07/18/1994 TdaP Immunization Completed 01/19/2020 Meningococcal Immunization (ACWY) Aged Out No longer eligible based on patient's age to complete this topic Pneumococcal Immunization Combined Aged Out No longer eligible based on patient's age to complete this topic Rotavirus Immunization Aged Out No lo nger eligible based on patient's age to complete this topic Insurance [place] [place] [address] Care Teams Tow Motor Operator Relationship Specialty Start Date End Date Francesco Pedraza MD [facility] [address] [address] PCP - General Family Medicine 03/15/22
--- OUTSIDE RECORDS SUMMARY | 2024-09-10 09:11 | XMS_ITS | Clinical Summary ---
Author Organization [facility] Address [address] [place] [address] Care Team Providers Care Tech Ed Teacher Name Role Phone Francesco Pedraza MD Primary Care Provider [phone] Source Comments [facility],non-owned Affiliates and Associated Physician Practices is amultiple site organization consisting of ambulatory clinics and hospital sitesin [place], [place], [place] and [place]. This disclosure is being madepursuant to the Care Everywhere program and may not contain all information available regarding this patient. Last updated 18.[facility] Allergies No known active allergies Medications * Be aware that medications may not be up to date on this document. Alwaysverify current medications with the patient. lisinopril (Prinivil; Zestril) 10 MG tablet Take 1 (one) tablet by mouth once daily 02/20/2022 Active omeprazole (PriLOSEC) 40 MG capsule TAKE 1 CAPSULE BY MOUTH ONCE DAILY BEFORE A MEAL 06/26/2022 Active famotidine (Pepcid) 40 MG tablet Take 1 (one) tablet by mouth at bedtime 06/18/2022 Active doxycycline hyclate 100 MG tablet Take 1 (one) tablet by mouth 06/27/2022 Active PARoxetine (Paxil) 10 MG tablet Take 1 (one) tablet by mouth as directed 01/31/2021 Active pantoprazole EC (Protonix) 40 MG tablet Take 1 (one) tablet by mouth once daily 06/16/2022 Active omeprazole (PriLOSEC) 40 MG capsule Take 1 (one) capsule by mouth once daily 04/18/2022 Active lisinopril (Prinivil; Zestril) 5 MG tablet Take 1 (one) tablet by mouth once daily 05/18/2021 Active hydroCHLOROthia zide (Hydrodiuril) 12.5 MG Take 1 (one) tablet by mouth once daily 01/31/2021 Active famotidine (Pepcid) 40 MG tablet Take 1 (one) tablet by mouth at bedtime 05/21/2022 Active vitamin D, ergocalciferol, (Drisdol) 1.25 MG (33966 UT) capsule Take 1 (one) capsule by mouth once daily 01/31/2021 Active cyclobenzaprine (Flexeril) 10 MG tablet Take 1 (one) tablet by mouth as needed 03/11/2021 Active Active Problems No known active problems Social History Tobacco Use Types Packs/Day Years Used Date Smoking Tobacco: Never Assessed Sex and Gender Information Value Date Recorded Sex Assigned at Not on file 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 Gender Identity Not on file Sexual Orientation Not on file Last Filed Vital Signs Vital Sign Reading Time Taken Comments Blood Pressure 126/80 07/03/2022 2:05 PM CDT Pulse 81 07/03/2022 2:05 PM CDT Temperature 36.7 C (98 F) 07/03/2022 2:05 PM CDT Respiratory Rate 16 07/03/2022 2:05 PM CDT Oxygen Saturation 97% 07/03/2022 2:05 PM CDT Inhaled Oxygen Concentration - - Weight 137 kg (302 lb) 07/03/2022 2:05 PM CDT Height 185.4 cm (6' 1) 07/03/2022 2:05 PM CDT Body Mass Index 39.84 07/03/2022 2:05 PM CDT Plan of Treatment Health Maintenance Due Date Last Done Comments HIV SCREENING 2004 HEPATITIS C SCREENING 09/18/2007 DTAP/TDAP/TD VACCINES (1 - Tdap) 2008 HEPATITIS B VACCINE (1 of 3 - 19+ 3-dose series) 2008 COVID-19 VACCINE ( - 2023-2 5 season) 2023 DEPRESSION SCREENING 04/16/2024 INFLUENZA VACCINE (Season Ended) 2024 ZOSTER VACCINE (1 of 2) 09/23/2039 HIB VACCINE Aged Out No longer eligi ble based on patient's age to complete this topic HPV VACCINE Aged Out No longer eligi ble based on patient's age to complete this topic MENINGOCOCCAL (Group B) VACC INE SHARED DECISION-MAKING Aged Out No longer eligibl e based on patient's age to complete this topic MENINGOCOCCAL GROUPS A/C/Y/W VACCINE Aged Out No longer eligible b ased on patient's age to complete this topic PNEUMOCOCCAL VACCINE Aged Out No long er eligible based on patient's age to complete this topic Insurance [facility] Address: [address] [place] [address] Care Teams Tech Ed Teacher Relationship Specialty Start Date End Date Francesco Pedraza MD [address] [place] [id number] PCP - General Family Medicine 03/15/21
[2024-09-10 09:16] VITALS: BP 154/93; PULSE 97; RESP 16; TEMP 37.1; O2SAT 99
--- NOTE | 2024-09-10 10:21 | ED_ITS ---
HPI - Neck Pain/Injury General Chief Complaint: Neck Pain/Injury Stated Complaint: neck pain Time Seen by Provider: 09/10/24 09:51 Source: patient Mode of arrival: ambulatory Limitations: no limitations History of Present Illness HPI Narrative: This is a 33-year-old male that presents to the emergency department for right- sided neck pain. Reports worsening pain and stiffness. No recent injuries or trauma. He has taken some Advil intermittently with little relief. Denies fever, numbness, weakness. Related Data Allergies Allergy/AdvReac Type Severity Reaction Status Date / Time doxycycline Allergy Intermediate Blister Verified 09/10/24 09:08 Review of Systems Review of Systems: CONSTITUTIONAL: Denies fever GASTROINTESTINAL: Denies vomiting MUSCULOSKELETAL: Reports myalgia. NEUROLOGIC: Denies headache, numbness, or weakness. All systems reviewed & are unremarkable except as noted in HPI and below PMFSH Past Medical History Medical History [place] (obstructive sleep apnea) Chronic sinusitis Arthritis Obesity Hypertension History of gastroesophageal reflux (GERD) Anxiety Surgical History Surgical History History of umbilical hernia repair robotic assisted repair incarcerated umbilical hernia with defect measuring 4 cm on 12/07/22 PDC No history of previous surgery Family History Family History Father Hypertension Diabetes mellitus Mother Hypertension Lung cancer Grandparent Hypertension Diabetes mellitus Alcoholism in family member Stomach cancer Grandparent Hypertension Heart problem Social History Social History Social History: Caffeine: Coffee and tea daily 1 cup Smoking status: Current every day smoker Tobacco type: e-cigarettes/vaping Second hand tobacco smoke exposure: Yes Smoking end date: 06/15/15 Alcohol intake: current Alcohol use details: Weekend Drinker Substance use: never Substance use type: does not use Do You Feel Safe in your Home?: Yes Lack of Transportation: No Lack of Food: Never True Current Housing: I Have Housing Concerned About Future Housing: No Difficulty Paying Gas/Electric Bills: No Difficulty Paying for Meds: No Currently Unemployed: No Education: Trade/Vocational Certificate Difficulty w/ Childcare or Family Care: No Living arrangements: with family Additional living arrangements comments: significant other Occupation/Education: occupation Gender identity (if verbalized by the patient): Male Sexual Orientation (if Verbalized by the Patient): Straight or Heterosexual Spiritual care concerns: No Agree to blood products: Yes Exam Narrative: GENERAL: Well-appearing, well-nourished, and in no acute distress. HEAD: Normocephalic, atraumatic. EYES: PERRLA and EOMI. ENT: Nares clear, no rhinorrhea or epistaxis. Mucous membranes moist. Oropharynx without tonsillar hypertrophy exudate or other lesions. NECK: Supple. No adenopathy or masses. Tender to palpation of right trapezius musculature CHEST: Clear to auscultation. No respiratory distress. No wheezes rales or rhonchi HEART: Regular rate and rhythm. No murmur heard. Normal peripheral pulses. EXTREMITIES: Normal range of motion. No edema. SKIN: Warm, dry, no rash. NEURO: No focal deficits. Alert and oriented x3. PSYCH: Normal mood and affect Course Course Emergency Course: Patient updated on his workup. Reports much improvement after Toradol, Valium and Tylenol Vital Signs Vital signs: Vital Signs Temperature 98.7 F 09/10/24 09:16 Pulse Rate 97 09/10/24 09:16 Respiratory Rate 16 09/10/24 09:16 Blood Pressure 154/93 H 09/10/24 09:16 Pulse Oximetry 99 09/10/24 09:16 Temperature 98.7 F 09/10/24 09:16 Pulse Rate 97 09/10/24 09:16 Respiratory Rate 16 09/10/24 09:16 Blood Pressure 154/93 H 09/10/24 09:16 Pulse Oximetry 99 09/10/24 09:16 MDM - Neck Pain/Injury MDM Narrative Medical decision making narrative: Patient presents to the emergency department for muscle spasm. He is afebrile and nontoxic appearing. He is neurologically intact. Cervical spine x-rays consistent with muscle spasm. He was given diazepam, Toradol, Tylenol with improvement. Instructed to have follow-up with his primary provider. Was given warnings to return to the ER Differential Diagnosis Differential diagnosis: Likely cervical radiculopathy, torticollis, strain of neck muscle and other (muscle spasm) Imaging Data Radiologist's impression: ITS Impressions Cervical Spine X-Ray 09/10/24 11:14 IMPRESSION: 1. Possible torticollis with 27 degrees cervical dextroscoliosis with slight reversal of the normal cervical lordosis. Critical Care Time Critical Care Time Critical Care Time: No Discharge Plan Discharge Clinical Impression: Muscle spasm Patient Disposition: Home Condition: Improved Instructions: Spasmodic Torticollis (ED) Additional Instructions: Return to the ER if you experience fever, vision changes, vomiting, weakness, numbness, or any other symptoms that are concerning to you Rest, use ice/heat, take anti-inflammatories (Aleve, Ibuprofen, Naproxen, etc) or Tylenol as needed for pain as well as muscle relaxer (Diazepam) as needed for pain. Muscle relaxers can make you drowsy, do not drive if you take this Follow up with your primary care doctor Patient Language: Spanish Prescriptions: New diazepam 5 mg tablet 5 mg PO BID PRN (Reason: muscle spasm) Qty: 10 0RF No Action amoxicillin-pot clavulanate 875-125 mg tablet 1 tablet PO Q12H Qty: 20 0RF prednisone 20 mg tablet 20 mg PO BID 5 Days Qty: 10 0RF lisinopril 10 mg tablet 10 mg PO DAILY Qty: 90 0RF omeprazole 40 mg capsule,delayed release(DR/EC) 40 mg PO DAILY Qty: 90 0RF Follow-up/Referrals: Shreya Lawrence, BIOINFORMATICS SUPPORT SPECIALIST-C [Primary Care Provider] - Stand Alone Forms: Work/School Release IP
--- OUTSIDE RECORDS SUMMARY | 2024-09-10 10:23 | XMS_ITS | Referral Summary ---
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 Gender Identity Not on file Sexual Orientation [...] Plan of Treatment Not on file Insurance [facility] O BLUE ACCESS OOS AETNA [facility] ACC[facility] OOS Member Subscriber Plan / Payer (Ef fective 2023-Present) Name:Wilbur Redding Relation to Subscriber:Self Name:Wilbur Redding Payer ID:[id number] (NAIC) Type:BC ALLIANCE Address: [facility] [id number] [place] [id number] Care Teams Exercise Science Internship Relationship Specialty Start Date End Date Sunil Russell MD [address] [facility] [address] [phone] PCP - General Hematology 08/21/22
--- OUTSIDE RECORDS SUMMARY | 2024-09-10 10:23 | XMS_ITS | CONTINUITY OF CARE DOCUMENT ---
Author Name nida jacobyaxel Address Unknown Organization [facility] Address [address] [place] [address] Phone [phone] Care Team Providers Care Diamond Setter Name Role Phone Abdon Corbett MD Unavailable BREE MOREAU MD Unavailable [phone] BREE MOREAU MD Unavailable [phone] PROBLEMS Condition Status Date Provider Notes Family History of Hypertension: active ? Dg Plurad Family History of Hypertension: active ? Dg Plurad Family History Coronary Hear t Disease male < 55: active ? Dg Plurad Chest pain-type to be determined active Gwendolyn x Plurad GERD active Dg Plurad Anxiety active Dg Plurad HTN essential active Abdon Corbett MD Obesity active Dg Plurad Hyperlipidemia active Dg Plurad Snoring active Dg Hortensiaad Arm pain, left active Abdon Corbett MD ENCOUNTERS Date Type Provider Location Encounter Diag nosis - In-person encounter Office Visit Abdon Corbett MD [place] [facility] - In-person encounter Office Visit [facility] [place] [facility] Arm pain, left - In-person encounter Office Visit [facility] [place] [facility] - In-person encounter Office Visit Abdon Corbett MD [place] [facility] HTN essential - In-person encounter Office Visit Abdon Corbett MD [place] [facility] Family History of Hypertension:Family History of [...] Segundo oxygen saturation, oximetry 95 % Brenda [place] respiratory rate E&M 16 /min Brenda V [...] years as a smoker 15 a Abdon oCrbett MD smoking history, tot al pack/day e [...] history, tot al pack/day e cig Shanda Beugm cigarette use yes Shanda mariano smoking status [...] Policy type / Coverage type Elisha red alliance party ID AETNA [facility] Medicaid [id number] ADVANCE DIRECTIVES Name Date DISCUSSED - NO DECISION MADE TREATMENT PLAN Date Name Performer [id number],C, P T advise to lose weight and exercise. Abdon Corbett MD [id number],C,T akes Omeprazole daily. His updated medication list for this problem includes: Omeprazole 40 Mg Capsule,delayed Release(dr/ec) (Omeprazole) ..... Take 2 tablet by mouth once a day Abdon Corbett MD [id number],S, B ounding L radial pulse. Abdon Corbett MD [id number],S, B P today: 144/88 P rior BP: [...] echo. O rders: S TR - Nuclear (CPT-85424) C omplete Echo (CPT-62492) Abdon Corbett MD Date Name Complete Echo [...]
--- OUTSIDE RECORDS SUMMARY | 2024-09-10 10:23 | XMS_ITS | Clinical Summary ---
Author Organization 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
--- OUTSIDE RECORDS SUMMARY | 2024-09-10 10:23 | XMS_ITS | Clinical Summary ---
Author Organization 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 Gender Identity Not on file Sexual Orientation Not on file Last Filed Vital Signs Vital Sign Reading Time Taken Comments Blood Pressure 140/80 03/20/2022 10:27 AM JET ENGINE MECHANIC Pulse 91 03/20/2022 10:27 AM JET ENGINE MECHANIC Temperature 36.7 C (98 F) 03/20/2022 10:27 AM JET ENGINE MECHANIC Respiratory Rate 20 03/20/2022 10:27 AM JET ENGINE MECHANIC Oxygen Saturation 96% 03/20/2022 10:27 AM JET ENGINE MECHANIC Inhaled Oxygen Concentration - - Weight 137 kg (302 lb) 03/20/2022 10:27 AM JET ENGINE MECHANIC Height 185.4 cm (6' 1) 03/20/2022 10:27 AM JET ENGINE MECHANIC Body Mass Index 39.84 03/20/2022 10:27 AM JET ENGINE MECHANIC Plan of Treatment Health Maintenance Due Date [...] to complete this topic Insurance [place] [address] [place] [address] Care Teams Yarn Sizer Relationship Specialty Start Date End Date Francesco Pedraza MD [facility] [address] [address] PCP - General Family Medicine 03/15/22
--- OUTSIDE RECORDS SUMMARY | 2024-09-10 10:23 | XMS_ITS | Clinical Summary ---
Author Organization [facility] Address [address] [place] [address] Care Team Providers Care Supervisor Of Research Name Role Phone Francesco Pedraza MD Primary Care Provider [phone] Source Comments [facility],non-owned Affiliates and Associated Physician Practices is amultiple site organization consisting of ambulatory clinics and hospital sitesin [place], [place], [place] and [place]. This disclosure is being madepursuant to the Care Everywhere program and may not contain all information available regarding this patient. 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
[2024-09-10] MEDS: KETOROLAC 30 MG/ML VIAL (*BKC) IM (10:36)
[2024-09-10] MEDS: ACETAMINOPHEN 500 MG TABLET 1000 MG PO (10:36)
[2024-09-10] MEDS: diazePAM INJ (*CRX) 10 MG/2 ML SYRINGE 5 MG IM (10:37)
== END 2024-09-10 12:45 | disposition home or self-care (01) ==
PROVIDERS: Emergency Provider Physician Assistant; PCP Clinical Nurse Specialist
DX: M62.838 Other muscle spasm (principal); I10 Essential (primary) hypertension; G47.33 Obstructive sleep apnea (adult) (pediatric); F17.290 Nicotine dependence, other tobacco product, uncomplicated
CPT/HCPCS: 72040; 96372; 99284; A9270; J1885; J3360